=== PATIENT | female | born 1970 | race Caucasian/White ===

== ENCOUNTER 2022-09-26 08:01 | Inpatient (IN) | payer MEDICARE, OTHER ==
[2022-09-26] MEDS ORDERED: NITROGLYCERIN OINT 1 INCH/GM PACKET TOPICAL STA (08:32)
--- NOTE | 2022-09-26 08:35 | ED ---
General Adult HPI - General Chief complaint: Chest Pain Stated complaint: Chest pain Time Seen by Provider: 09/26/22 08:26 Source: patient, family, RN notes reviewed Mode of arrival: ambulatory Limitations: no limitations - History of Present Illness Initial comments: Patient is a pleasant 52-year-old female presenting to the emergency Department with concerns with chest discomfort. Onset of symptoms was a couple hours ago. Patient has pressure, more on the right side. Patient also has some associated dyspnea and was cold and sweaty earlier. Patient is a poor historian and family provides majority of history. Patient did also have an episode yesterday where she had difficulty moving her right arm and it locked up on her. Unclear how long this lasted for. Those symptoms have resolved at this time. - Related Data Home Medications Medication Instructions Recorded Confirmed Aspirin EC [Ecotrin Low Dose] 81 mg PO DAILY 09/26/22 09/26/22 Cholecalciferol [Vitamin D3 (25 25 mcg PO DAILY 09/26/22 09/26/22 Mcg = 1000 Iu)] Donepezil [Aricept] 10 mg PO BID 09/26/22 09/26/22 Meclizine [Antivert] 12.5 mg PO TID PRN 09/26/22 09/26/22 Memantine [Namenda] 10 mg PO BID 09/26/22 09/26/22 Multivitamins, Thera [Multivitamin 1 tab PO DAILY 09/26/22 09/26/22 (formulary)] Allergies Allergy/AdvReac Type Severity Reaction Status Date / Time No Known Allergies Allergy Verified 09/26/22 10:50 Review of Systems ROS Statement: Those systems with pertinent positive or pertinent negative responses have been documented in the HPI. ROS Other: All systems not noted in ROS Statement are negative. Constitutional: Denies: fever Eyes: Denies: eye pain ENT: Denies: ear pain Respiratory: Reports: as per HPI, cough, dyspnea Cardiovascular: Reports: as per HPI, chest pain Endocrine: Reports: fatigue Gastrointestinal: Denies: abdominal pain Genitourinary: Denies: dysuria Musculoskeletal: Denies: back pain Skin: Denies: rash Neurological: Reports: as per HPI. Denies: headache Past Medical History Past Medical History: Chest Pain / Angina, CVA/TIA, Memory Impairment History of Any Multi-Drug Resistant Organisms: None Reported Past Surgical History: Hysterectomy Past Psychological History: No Psychological Hx Reported Smoking Status: Current every day smoker Past Alcohol Use History: None Reported Past Drug Use History: None Reported General Exam Limitations: no limitations General appearance: alert, in no apparent distress Head exam: Present: atraumatic, normocephalic Eye exam: Present: normal appearance, PERRL, EOMI ENT exam: Present: normal oropharynx Neck exam: Present: normal inspection Respiratory exam: Present: normal lung sounds bilaterally Cardiovascular Exam: Present: regular rate, normal rhythm Expanded Peripheral pulses: 2+: Radial (R), Radial (L), Dorsalis Pedis (R), Dorsalis Pedis (L) GI/Abdominal exam: Present: soft. Absent: tenderness Extremities exam: Present: normal inspection, full ROM. Absent: pedal edema, calf tenderness Neurological exam: Present: alert, CN II-XII intact. Absent: motor sensory deficit Expanded Neurological exam: Present: protecting the airway Cranial nerves: EOM's Intact: Normal Sensory exam: Upper Extremity Light Touch: Normal, Lower Extremity Light Touch: Normal Motor strength exam: RUE: 5, LUE: 5, RLE: 5, LLE: 5 Psychiatric exam: Present: normal affect, normal mood Skin exam: Present: normal color Course Vital Signs 09/26/22 09/26/22 09/26/22 08:22 08:31 08:43 Temperature 98.5 F Pulse Rate 91 78 Pulse Rate [ 74 Office Assistant ] Respiratory 20 18 Rate Blood Pressure 86/53 100/52 O2 Sat by Pulse 99 98 Oximetry 09/26/22 09/26/22 09/26/22 09:01 10:19 10:56 Temperature Pulse Rate 78 85 81 Pulse Rate [ Office Assistant ] Respiratory 18 18 18 Rate Blood Pressure 104/84 97/62 106/59 O2 Sat by Pulse 98 98 98 Oximetry EKG Findings - EKG Results: EKG: interpreted by ERMD (T wave inversion leads V3 and V4.), sinus rhythm, normal axis, normal QRS Medical Decision Making - Medical Decision Making Was pt. sent in by a medical professional or institution (, PA, [facility] [employer], urgent care, hospital, or senior care...) When possible be specific @ -No Did you speak to anyone other than the patient for history (EMS, parent, family, police, friend...)? What history was obtained from this source @ -Family is present to help provide history as patient is a somewhat poor historian Did you review nursing and triage notes (agree or disagree)? Why? @ -I reviewed and agree with nursing and triage notes Were old charts reviewed (outside hosp., previous admission, EMS record, old EKG, old radiological studies, urgent care reports/EKG's, senior care records)? Report findings @ -And unable to find previous EKG Differential Diagnosis (chest pain, altered mental status, abdominal pain women, abdominal pain men, vaginal bleeding, weakness, fever, dyspnea, syncope, headache, dizziness, GI bleed, back pain, seizure, CVA, palpatations, mental health)? @ -Differential Chest Pain: Stable Angina, Unstable Angina, STEMI, NSTEMI Aortic Dissection, Pneumothorax, Musculoskeletal, Esophageal Spasm GERD, Cholecystitis, Pancreatitis, Zoster, this is not meant to be an all-inclusive list. EKG interpreted by me (3pts min.). @ -As above X-rays interpreted by me (1pt min.). @ -Chest x-ray shows no acute process CT interpreted by me (1pt min.). @ -Reports reviewed U/S interpreted by me (1pt. min.). @ -None done What testing was considered but not performed or refused? (CT, X-rays, U/S, labs)? Why? @ -None What meds were considered but not given or refused? Why? @ -None Did you discuss the management of the patient with other professionals (professionals i.e. , PA, [employer], lab, RT, psych nurse, social media designer, gas compressor operator, teacher, staff readiness officer, outpatient case manager)? Give summary @ -Case was discussed with Dr. hein, who will admit covering Dr. Bolden. Was smoking cessation discussed for >3mins.? @ -No Was critical care preformed (if so, how long)? @ -No Were there social determinants of health that impacted care today? How? (Homelessness, low income, unemployed, alcoholism, drug addiction, transportation, low edu. Level, literacy, decrease access to med. care, senior care, rehab)? @ -No Was there de-escalation of care discussed even if they declined (Discuss DNR or withdrawal of care, Hospice)? DNR status @ -No What co-morbidities impacted this encounter? (DM, HTN, Smoking, COPD, CAD, Cancer, CVA, ARF, Chemo, Hep., AIDS, mental health diagnosis, sleep apnea, morbid obesity)? @ -None Was patient admitted / discharged? Hospital course, mention meds given and route, prescriptions, significant lab abnormalities, going to OR and other pertinent info. @ -Patient reevaluated. Patient and family updated. Patient will be admitted with neurology evaluation Undiagnosed new problem with uncertain prognosis? @ -No Drug Therapy requiring intensive monitoring for toxicity (Heparin, Nitro, Insu nicko, Cardizem)? @ -No Were any procedures done? @ -No Diagnosis/symptom? @ -Pneumonia, TIA Acute, or Chronic, or Acute on Chronic? @ -Acute, acute Uncomplicated (without systemic symptoms) or Complicated (systemic symptoms)? @ -default Side effects of treatment? @ -No Exacerbation, Progression, or Severe Exacerbation? @ -No Poses a threat to life or bodily function? How? (Chest pain, [place], AR, pneumonia, PE, COPD, DKA, ARF, appy, cholecystitis, CVA, Diverticulitis, Homicidal, Suicidal, threat to staff... and all critical care pts) @ -No - Lab Data Result diagrams: 09/26/22 08:41 09/26/22 08:41 Lab Results 09/26/22 09/26/22 09/26/22 Range/Units 08:41 08:41 08:41 WBC 26.0 H (3.8-10.6) k/uL RBC 4.46 (3.80-5.40) m/uL Hgb 13.4 (11.4-16.0) gm/dL Hct 40.7 (34.0-46.0) % MCV 91.2 (80.0-100.0) fL MCH 30.0 (25.0-35.0) pg MCHC 32.9 (31.0-37.0) g/dL RDW 13.6 (11.5-15.5) % Plt Count 288 (150-450) k/uL MPV 8.6 Neutrophils % 88 % Lymphocytes % 7 % Monocytes % 5 % Eosinophils % 0 % Basophils % 0 % Neutrophils # 22.9 H (1.3-7.7) k/uL Lymphocytes # 1.7 (1.0-4.8) k/uL Monocytes # 1.2 H (0-1.0) k/uL Eosinophils # 0.0 (0-0.7) k/uL Basophils # 0.1 (0-0.2) k/uL PT 10.2 (9.0-12.0) sec INR 1.0 (<1.2) APTT 21.7 L (22.0-30.0) sec D-Dimer 0.87 H (<0.60) mg/L FEU Sodium 142 (137-145) mmol/L Potassium 3.7 (3.5-5.1) mmol/L Chloride 106 (98-107) mmol/L Carbon Dioxide 28 (22-30) mmol/L Anion Gap 8 mmol/L BUN 19 H (7-17) mg/dL Creatinine 0.59 (0.52-1.04) mg/dL Est GFR (CKD-EPI)AfAm >90 (>60 ml/min/1.73 sqM) Est GFR (CKD-EPI)NonAf >90 (>60 ml/min/1.73 sqM) Glucose 152 H (74-99) mg/dL Calcium 8.8 (8.4-10.2) mg/dL Magnesium 1.6 (1.6-2.3) mg/dL Total Bilirubin 0.8 (0.2-1.3) mg/dL AST 24 (14-36) U/L ALT 26 (4-34) U/L Alkaline Phosphatase 73 (38-126) U/L Troponin I (0.000-0.034) ng/mL Total Protein 6.7 (6.3-8.2) g/dL Albumin 4.1 (3.5-5.0) g/dL 09/26/22 Range/Units 08:41 WBC (3.8-10.6) k/uL RBC (3.80-5.40) m/uL Hgb (11.4-16.0) gm/dL Hct (34.0-46.0) % MCV (80.0-100.0) fL MCH (25.0-35.0) pg MCHC (31.0-37.0) g/dL RDW (11.5-15.5) % Plt Count (150-450) k/uL MPV Neutrophils % % Lymphocytes % % Monocytes % % Eosinophils % % Basophils % % Neutrophils # (1.3-7.7) k/uL Lymphocytes # (1.0-4.8) k/uL Monocytes # (0-1.0) k/uL Eosinophils # (0-0.7) k/uL Basophils # (0-0.2) k/uL PT (9.0-12.0) sec INR (<1.2) APTT (22.0-30.0) sec D-Dimer (<0.60) mg/L FEU Sodium (137-145) mmol/L Potassium (3.5-5.1) mmol/L Chloride (98-107) mmol/L Carbon Dioxide (22-30) mmol/L Anion Gap mmol/L BUN (7-17) mg/dL Creatinine (0.52-1.04) mg/dL Est GFR (CKD-EPI)AfAm (>60 ml/min/1.73 sqM) Est GFR (CKD-EPI)NonAf (>60 ml/min/1.73 sqM) Glucose (74-99) mg/dL Calcium (8.4-10.2) mg/dL Magnesium (1.6-2.3) mg/dL Total Bilirubin (0.2-1.3) mg/dL AST (14-36) U/L ALT (4-34) U/L Alkaline Phosphatase (38-126) U/L Troponin I <0.012 (0.000-0.034) ng/mL Total Protein (6.3-8.2) g/dL Albumin (3.5-5.0) g/dL Disposition Clinical Impression: Pneumonia, TIA (transient ischemic attack) Disposition: ADMITTED IP TO THIS HOSP Condition: Serious Is patient prescribed a controlled substance at d/c from ED?: No Referrals: Lencho Noriega MD [Primary Care Provider] - 1-2 days Time of Disposition: 11:05
[2022-09-26 08:51] LABS: Basophils # (A) 0.1 k/uL (0-0.2); Basophils % (A) 0 %; Eosinophils % (A) 0 %; HCT 40.7 % (34.0-46.0); HGB 13.4 gm/dL (11.4-16.0); Lymphocytes # (A) 1.7 k/uL (1.0-4.8); Lymphocytes % (A) 7 %; MCHC 32.9 g/dL (31.0-37.0); MCV 91.2 fL (80.0-100.0); Mean Platelet Volume 8.6; Monocytes # (A) 1.2 k/uL (0-1.0); Monocytes % (A) 5 %; Neutrophils # (A) 22.9 k/uL (1.3-7.7); Neutrophils % (A) 88 %; Platelet Count 288 k/uL (150-450); RBC 4.46 m/uL (3.80-5.40); RDW 13.6 % (11.5-15.5)
[2022-09-26 09:01] LABS: ALT 26 U/L (4-34); AST 24 U/L (14-36); African American GFR (CKD) >90 (>60 ml/min/1.73 sqM); Albumin 4.1 g/dL (3.5-5.0); Alkaline Phosphatase 73 U/L (38-126); Anion Gap 8 mmol/L; Blood Urea Nitrogen 19 mg/dL (7-17); Calcium 8.8 mg/dL (8.4-10.2); Carbon Dioxide 28 mmol/L (22-30); Chloride 106 mmol/L (98-107); Glucose 152 mg/dL (74-99); Magnesium 1.6 mg/dL (1.6-2.3); Non-African American GFR(CKD) >90 (>60 ml/min/1.73 sqM); Potassium 3.7 mmol/L (3.5-5.1); Sodium 142 mmol/L (137-145); Total Bilirubin 0.8 mg/dL (0.2-1.3); Total Protein 6.7 g/dL (6.3-8.2)
--- NOTE | 2022-09-26 09:03 | CT ---
EXAMINATION TYPE: CT brain wo con DATE OF EXAM: 09/26/2022 COMPARISON: None HISTORY: Right arm weakness CT DLP: 1070.7 mGycm Automated exposure control for dose reduction was used. FINDINGS: There is mild generalized degenerative change. There is no evidence of acute hemorrhage or mass effec t. No midline shift. Calvarium is grossly intact. Sinuses are clear. Orbits are symmetric. Craniocerv ical junction maintained. IMPRESSION: NO ACUTE HEMORRHAGE OR MASS EFFECT. CORRELATED WITH MRI IF CONCERN FOR ACUTE ISCHEMIA CLINICALLY W ARRANTED.
--- NOTE | 2022-09-26 09:04 | XR ---
EXAMINATION TYPE: XR chest 2V DATE OF EXAM: 09/26/2022 COMPARISON: 01/06/2010 TECHNIQUE: PA and lateral views submitted. HISTORY: Chest pain FINDINGS: The lungs are clear and there is no pneumothorax, pleural effusion, or focal pneumonia. Heart size normal and no overt failure. Osseous structures demonstrate hypertrophic and degenerative changes of the spine. Diffuse hyperinflation correlate for COPD. IMPRESSION: 1. No acute process. Correlate for COPD.
[2022-09-26 09:11] LABS: Partial Thromboplastin Time 21.7 sec (22.0-30.0); Prothrombin Time 10.2 sec (9.0-12.0)
--- NOTE | 2022-09-26 09:55 | CT ---
EXAMINATION TYPE: CT angio chest DATE OF EXAM: 09/26/2022 COMPARISON: Radiograph 09/26/2022 HISTORY: 52-year-old female Chest pains, dyspnea and cough TECHNIQUE: Contiguous axial scanning of the chest performed with IV Contrast, patient injected with 1 00, wasted 24 ml mL of Isovue 300. Coronal/sagittal MIP reconstructions performed. CT DLP: 195.8 mGycm Automated exposure control for dose reduction was used. FINDINGS: Multiple underlying thyroid nodules measuring up to at least 1.1 cm. Heart normal size without pericardial effusion. No flattening of the interventricular septum or reflu x of contrast into the hepatic veins. Aorta normal caliber with a conventional arch was a branching anatomy. Some prominent but nonenlarged mediastinal lymph nodes in the lower paratracheal and precarinal regio n measuring up to 7 mm. At the right hilum measuring 1.5 cm. Satisfactory opacification of the pulmonary artery system. There is excessive breathing motion at the lower lungs obscuring segmental and more distal branches of the lower lobe pulmonary arteries. No ev idence for pulmonary embolus within the upper or mid lungs. There is airspace disease medial right middle lobe and patchy infiltrate right base as well. Some end obronchial material is present within the posterior basilar segment of the right lower lobe. Some min imal scattered endobronchial debris is present in the basal left lower lobe as well. Background moderate upper lung predominant centrilobular emphysema. Biapical pleural-parenchymal scar ring. Visualized upper abdomen shows low density nodular thickening left adrenal gland and a nonspecific ca lcification measuring 7 mm on the right adrenal gland. Bones: Mild to moderate anterior degenerative disc disease mid thoracic spine with slight accentuated kyphosis. IMPRESSION: 1. EXCESSIVE BREATHING MOTION AT THE LOWER LUNGS LIMITING THE SEGMENTAL AND MORE DISTAL BRANCHES OF T HE LOWER LOBES. NO EVIDENCE FOR PULMONARY EMBOLUS IN THE UPPER OR MID LUNGS. 2. RIGHT MIDDLE LOBE PNEUMONIA AND ADDITIONAL BASILAR RIGHT LOWER LOBE INFILTRATES. SOME ENDOBRONCHIA L DEBRIS WITHIN BOTH LOWER LOBES. CORRELATE TO EXCLUDE THE POSSIBILITY OF ASPIRATION. 3. COPD WITH MODERATE EMPHYSEMA. SOME REACTIVE RIGHT HILAR LYMPHADENOPATHY SUSPECTED. FOLLOW-UP IN 3- 6 MONTHS TO ENSURE RESOLUTION. 4. MULTINODULAR THYROID GLAND. NONEMERGENT THYROID ULTRASOUND TO FURTHER EVALUATE.
[2022-09-26] MEDS ORDERED: AZITHROMYCIN 500 MG in SODIUM CHLORIDE 0.9% 250 ML IVPB STA (10:58)
[2022-09-26] MEDS ORDERED: PNEUMONIA PROTOCOL UTILIZED 1 EACH MISC PO PRN (10:58)
[2022-09-26] MEDS ORDERED: ASPIRIN 325 MG TAB PO STA (11:01)
[2022-09-26] MEDS: SODIUM CHLORIDE 0.9% 1,000 ML IV SCH (11:19)
--- NOTE | 2022-09-26 13:05 | US ---
EXAMINATION TYPE: US carotid duplex BILAT DATE OF EXAM: 09/26/2022 COMPARISON: NONE CLINICAL HISTORY: Stenosis. Weakness, poor historian TECHNIQUE: Carotid duplex ultrasound examination. Indirect Doppler criteria was utilized. FINDINGS: EXAM MEASUREMENTS: RIGHT: Peak Systolic Velocity (PSV) cm/sec ----- Right CCA: 65.3 ----- Right ICA: 92.2 ----- Right ECA: 76.8 ICA/CCA ratio: 1.4 RIGHT: End Diastole cm/sec ----- Right CCA: 26.1 ----- Right ICA: 42.8 ----- Right ECA: 21.9 LEFT: Peak Systolic Velocity (PSV) cm/sec ----- Left CCA: 82.3 ----- Left ICA: 93.1 ----- Left ECA: 82.3 ICA/CCA ratio: 1.1 LEFT: End Diastole cm/sec ----- Left CCA: 25.2 ----- Left ICA: 41.3 ----- Left ECA: 17.5 VERTEBRALS (direction of flow): Right Vertebral: Antegrade Left Vertebral: Antegrade Rhythm: Normal [employer]ANT CUSTODIAN NOTES: No significant stenosis seen IMPRESSION: No significant hemodynamic stenosis is visualized. Criteria for Assigning % of Stenosis / Diameter reduction (Estimation based on the indirect measurements of the internal carotid artery velocities (ICA PSV). 1. Normal (no stenosis)=ICA PSV < 125 cm/s: ratio < 2.0: ICA EDV<40 cm/s. 2. Less than 50% stenosis=ICA PSV < 125 cm/s: ratio < 2.0: ICA EDV<40 cm/s. 3. 50 to 69% stenosis=ICA PSV of 125 to 230 cm/s: ration 2.0 ? 4.0: ICA EDV 40-100 cm/s. 4. Greater than 70% stenosis to near occlusion= ICA PSV > 230 cm/s: ratio > 4.0: ICA EDV > 100 cm/s. 5. Near occlusion= ICA PSV velocities may be low or undetectable: variable ratio and ICA EDV. 6. Total occlusion=unable to detect flow.
[2022-09-26] MEDS ORDERED: MECLIZINE 12.5 MG TAB PO PRN (16:28)
[2022-09-26] MEDS: MULTIVITAMINS, THERA 1 EACH TAB PO SCH (17:22)
[2022-09-26] MEDS: ATORVASTATIN 20 MG TAB PO SCH (17:22)
[2022-09-26] MEDS: CHOLECALCIFEROL 25 MCG (1000 IU) TABLET PO SCH (17:24)
[2022-09-26] MEDS: ACETAMINOPHEN TAB 325 MG TAB PO PRN (17:51)
--- NOTE | 2022-09-26 19:27 | P.CNNES ---
History of Present Illness Consult date: 09/26/22 Requesting physician: Diomedes Pulliam Reason for Consult: r arm weak, resolved, tia History of Present Illness: Patient is a 52-year-old right-handed female with history of strokes in the past, vascular dementia, COPD, tobacco use, came to the hospital today at 8:01 AM for possible TIA. Patient lives with her daughter, who mentions that she had history of a stroke which affected her right side about 24 years ago. A few years later, she had another one. It affected part of her vision on the right side, and her memory functions. Patient was recently admitted to [facility] for possible TIA about 3 months ago, in which she was not feeling well, like will pass out.-Patient's daughter saw her, she was laying in the bed with the lower body hanging down on the floor, and she couldn't move, couldn't talk. The episode lasted for a few hours. She stayed in [facility] overnight, underwent MRI, CT head and was released. She was diagnosed with "mini stroke". Patient did not have any jerking or seizure-like activity with that event. Patient's daughter states that she had a similar event this morning. She was dizzy, short of breath, couldn't stand up, couldn't move her right arm as if it was "locked up". She couldn't get up, couldn't respond well, or go to the bathroom. She was shaking, sweating and she couldn't stand because she was wobbly. Her daughter believes that she was like "paralyzed". Patient's daughter states that despite diagnosis of dementia, she is independent otherwise, can do all ADLs by herself. Vital signs arrival blood pressure 86/53, which improved to 100/52. Pulse rate 91 temperature 98.5. Blood test shows WBC 26.0, hemoglobin 13.4 and platelets are 288. PT/PTT normal. Chem-[address] is [address] Troponin negative. CT head revealed no acute hemorrhage or mass effect. Sinuses are clear. Chest x-ray showed no acute process. Correlate for COPD. EKG shows sinus rhythm. CT of the chest revealed negative for pulmonary embolism. Right middle lobe pneumonia and additional basilar right lower lobe infiltrates. Some endobronchial debris is within both lower lobes. COPD with moderate emphysema. Some reactive right hilar lymphadenopathy suspected. Multinodular thyroid gland. IM to address all these findings. No previous history of hypertension or diabetes or hyperlipidemia. Home medications include multivitamins, meclizine, Lipitor 20 mg, vitamin D, aspirin 81 mg, Namenda 10 mg twice a day and donepezil 10 mg twice a day. Patient has been diagnosed with dementia in 2019. Her symptoms started way before that. Patient can shower, get dressed by herself and she remembers her close family members. She cannot read or write, has short-term memory issues. She cannot make decisions. She would not remember the month or the year and does not remember conversations. Everything has to be in routine for her to remember. Anything out of routine she forgets. Patient follows up with Dr. Wagner, who has started patient on Aricept and Namenda. Patient daughter states that she had undergone lumbar puncture, which "confirmed dementia". Patient has smoked 1 pack per day for over 30 years, cutback to smoking one pack per week since February 2022. Patient lives with her daughter. Patient's daughter states that she had history of a stroke 22 years ago which affected her right side. After that she was diagnosed with hemiplegic migraines. She has also few "mini strokes" subsequently. Patient does have chronic daily heada ches. At present patient is not back to baseline. She is wobbly, dizzy, just is hurting in her conversation is not as well as before. Review of Systems Constitutional: Denies chills, Denies fever Eyes: bilateral blurred vision, denies diplopia, denies pain Ears: deny: ear discharge, earache Ears, nose, mouth and throat: Reports headache, Denies sore throat Cardiovascular: Reports chest pain, Reports shortness of breath Respiratory: Reports cough, Reports cough with sputum, Reports dyspnea Gastrointestinal: Reports diarrhea, Denies abdominal pain, Denies nausea, Denies vomiting Genitourinary: Denies dysuria, Denies hematuria, Denies urge incontinence Musculoskeletal: Reports muscle weakness, Denies myalgias Integumentary: Denies pruritus, Denies rash Neurological: Reports as per HPI Psychiatric: Reports confusion, Reports difficulty concentrating, Reports disorientation, Reports memory loss Endocrine: Denies fatigue, Denies weight change Hematologic/Lymphatic: Reports easy bleeding, Reports easy bruising Past Medical History Past Medical History: Chest Pain / Angina, CVA/TIA, Memory Impairment Additional Past Medical History / Comment(s): uterice CA with hysterectomy, tubes placed in ears History of Any Multi-Drug Resistant Organisms: None Reported Past Surgical History: Hysterectomy Past Anesthesia/Blood Transfusion Reactions: No Reported Reaction Past Psychological History: No Psychological Hx Reported Smoking Status: Current every day smoker Past Alcohol Use History: None Reported Past Drug Use History: None Reported - Past Family History Mother Family Medical History: Cancer Additional Family Medical History / Comment(s): small cell lung CA, brain tumor Father Family Medical History: Cancer Additional Family Medical History / Comment(s): large cell CA Medications and Allergies Home Medications Medication Instructions Recorded Confirmed Type Aspirin EC [Ecotrin Low Dose] 81 mg PO HS 09/26/22 09/26/22 History Atorvastatin [Lipitor] 20 mg PO DAILY 09/26/22 09/26/22 History Cholecalciferol [Vitamin D3 (25 25 mcg PO DAILY 09/26/22 09/26/22 History Mcg = 1000 Iu)] Donepezil [Aricept] 10 mg PO BID 09/26/22 09/26/22 History Meclizine [Antivert] 12.5 mg PO TID PRN 09/26/22 09/26/22 History Memantine [Namenda] 10 mg PO BID 09/26/22 09/26/22 History Multivitamins, Thera [Multivitamin 1 tab PO DAILY 09/26/22 09/26/22 History (formulary)] Allergies Allergy/AdvReac Type Severity Reaction Status Date / Time No Known Allergies Allergy Verified 09/26/22 11:16 Physical Examination - Vital Signs Vital Signs: Vital Signs Temp Pulse Pulse Resp BP BP Pulse Ox 09/26/22 13:10 98.3 F 78 18 96/61 97 09/26/22 12:17 81 18 105/59 98 09/26/22 10:56 81 18 106/59 98 09/26/22 10:19 85 18 97/62 98 09/26/22 09:01 78 18 104/84 98 09/26/22 08:43 78 18 100/52 98 09/26/22 08:31 74 09/26/22 08:22 98.5 F 91 20 86/53 99 Intake and Output 09/25/22 09/26/22 09/26/22 22:59 06:59 14:59 Other: Weight 49.895 kg Patient is a middle aged female, who appears older than her stated age. Patient is alert awake. Patient knows that she lives in [facility] and that she is in the hospital, but does not know the name of the hospital. She knows name of the current president Mr. Slater. She could not tell current month or the year. She is able to name objects like [employer], but could not name earlobe. She had difficulty with repetition, required multiple prompts. Speech and language functions are normal. No aphasia or dysarthria. Attention, concentration and fund of knowledge is limited. Patient has positive visuospatial apraxia, minimally positive palmomental reflex bilaterally. On cranial nerve examination, pupils are equal, round and reacting to light, visual de león revealed neglect on the right side with double simultaneous stimulation. Patient has severely decreased attention span. Extraocular muscles are intact with no nystagmus. Face is symmetric, tongue protrudes to the midline. Palatal elevation and sensation normal, hearing and shoulder shrug normal, facial sensation normal. On muscle strength testing, there is no pronator drift and the strength is normal in arms and legs distally and proximally. Deep tendon reflexes are symmetric 1+ to 2+ and plantars are withdrawal bilaterally. Sensory to touch is equal with no neglect on double simultaneous stimulation. Cerebellar function showed no ataxia for [id number] testing. No dysdiadochokinesia. No ataxia for [id number] testing on either side. Tone and bulk of muscles normal. Gait deferred.. On general examination, there is no carotid bruit or murmur, S1-S2 audible. Chest is clear on consultation. Abdomen is soft nontender. No organomegaly, bowel sounds present. Peripheral pulses are present. No edema. Results - Laboratory Findings CBC and BMP: 09/27/22 08:59 09/27/22 08:59 Abnormal Lab Findings: Abnormal Labs 09/26/22 09/26/22 09/26/22 08:41 08:41 08:41 WBC 26.0 H Neutrophils # 22.9 H Monocytes # 1.2 H APTT 21.7 L D-Dimer 0.87 H BUN 19 H Glucose 152 H Assessment and Plan Assessment: * Episode of altered mental status, right arm stiffness, rule out TIA/CVA, rule out focal seizure. Altered mental status could be related to acute pneumonia, but focal stiffness of the right arm is of unclear cause. * Dementia, probably vascular dementia, ?superimposed Alzheimer's. * Possible COPD exacerbation versus pneumonia. Patient on ceftriaxone. * History of stroke/TIA in the past. * History of hemiplegic migraines * Tobacco use Plan: * MRI of the brain without contrast, evaluate for acute CVA * 2-D echo to rule out embolic source. * Carotid Doppler, revealed no significant stenosis. Antegrade flow in both vertebral arteries. * Fasting a.m. lipid panel * Hemoglobin A1c * B12, folate, TSH, MMA, B6, B1, RPR. * Optimize control of blood pressure. * Close neuro checks * Telemetry monitoring rule out any arrhythmia * Patient currently on aspirin 81 mg daily. Patient had multiple strokes/TIAs in the past. Patient probably has failed aspirin regimen. We will consider placing her on dual antiplatelet medication (aspirin plus Plavix) for 21 days and then stop aspirin and continue Plavix. * EEG rule out epileptiform activity. * Obtain records from [facility]. * For possible COPD exacerbation, patient on ceftriaxone and azithromycin. IM following. * Recommend complete tobacco cessation. * DVT prophylaxis: Heparin 5000 units subcu every 8 hours * Neurology will continue ot follow. Thank you for the consult. Time with Patient: Greater than 30
[2022-09-26] MEDS: ASPIRIN 81 MG PO SCH (21:46)
[2022-09-26] MEDS: MEMANTINE 10 MG TAB PO SCH (21:46)
[2022-09-26] MEDS: DONEPEZIL 10 MG TAB PO SCH (21:46)
[2022-09-27] MEDS: SODIUM CHLORIDE 0.9% 1,000 ML IV SCH ×2 (00:40→21:33)
--- NOTE | 2022-09-27 00:56 | HP ---
HISTORY AND PHYSICAL CHIEF COMPLAINT: Chest pain. HISTORY OF PRESENT ILLNESS: This is a 52-year-old woman with a past medical history of multiple medical problems including CVA, TIA, history of memory impairment, was admitted to [facility] with complaints of chest discomfort, which started about a couple of years ago. The patient had a pressure type of pain in the anterior part, otherwise some associated shortness of breath and cold and sweaty feeling also. The patient also had some weakness of the right arm yesterday and the patient is admitted for further evaluation and treatment. There is no history of any fever, rigors, or chills at this time. CT angio of chest showed evidence of right middle lobe pneumonia. White count is elevated to 26.4, which was reviewed personally by me and CT of the brain showed no acute problems and there is no history of any rigors, or chills at this time. PAST MEDICAL HISTORY: Reviewed include CVA, TIA, history of memory impairment, history of chest pain, angina. Rest of the history and rest of the chart is also reviewed. HOME MEDICATIONS: Include aspirin. Dose and rest of the medications reviewed. ALLERGIES: None. FAMILY HISTORY: History of small cell lung cancer with brain tumor. SOCIAL HISTORY: History of smoking continued, ongoing. REVIEW OF SYSTEMS: A 14-point review is negative except as mentioned earlier. PHYSICAL EXAMINATION: VITAL SIGNS: Pulse 78, blood pressure 96/61, respirations 18. HEENT: Conjunctivae normal. NECK: No jugular venous distention. CARDIOVASCULAR: S1, S2 muffled. RESPIRATIONS: Breath sounds decreased at the bases. A few scattered rhonchi and crackles. ABDOMEN: Soft, nontender. LEGS: No edema. NERVOUS SYSTEM: No focal deficits. SKIN: No ulcer, rash, or bleeding. JOINTS: No active deforming arthropathy. LABORATORY DATA: WBC 26. ASSESSMENT: 1. Right middle lobe pneumonia, possibly rule out aspiration. 2. Right arm weakness, possible recent transient ischemic attack, rule out acute stroke. 3. History of cerebrovascular accident, transient ischemic attack. 4. History of memory impairment. 5. History of uterine cancer. 6. History of continued ongoing nicotine dependence. 7. Elevated D-dimer without any evidence of pulmonary embolism. 8. Elevated WBC. RECOMMENDATIONS AND DISCUSSION: This is a 52-year-old woman, who presented with multiple complex medical issues. At this time, I recommend to continue current medications and symptomatic treatment. Otherwise, I would recommend empiric antibiotics, pulmonary consultations, and full neurovascular workup. The patient has multiple complex medical issues as listed above, which definitely affects the prognosis and we will continue to monitor. See orders for further details. DVT prophylaxis. MMODL / IJN: [id number] /
--- NOTE | 2022-09-27 08:49 | XR ---
EXAMINATION TYPE: XR chest 2V DATE OF EXAM: 09/27/2022 COMPARISON: 09/26/2022 TECHNIQUE: PA and lateral views submitted. HISTORY: Cough FINDINGS: Subsegmental consolidation medial margin right lower lobe. Hyperinflation. Heart size normal. No over t failure. Nodular density overlying the left apex may be related to the chest lead. Could be followe d on subsequent images. 2 mm report upper lobe pulmonary nodule. Underlying COPD. IMPRESSION: 1. There is an area of increased density along the right heart border near the lung base could repres ent early pneumonia or atelectasis. 2. COPD
[2022-09-27] MEDS ORDERED: ASPIRIN 325 MG TAB PO SCH (09:00)
[2022-09-27] MEDS: AZITHROMYCIN 500 MG TAB PO SCH (09:07)
[2022-09-27] MEDS: ATORVASTATIN 20 MG TAB PO SCH (09:07)
[2022-09-27] MEDS: CHOLECALCIFEROL 25 MCG (1000 IU) TABLET PO SCH (09:09)
[2022-09-27] MEDS: DONEPEZIL 10 MG TAB PO SCH ×2 (09:09→21:32)
[2022-09-27] MEDS: MULTIVITAMINS, THERA 1 EACH TAB PO SCH (09:10)
[2022-09-27] MEDS: MEMANTINE 10 MG TAB PO SCH ×2 (09:10→21:32)
[2022-09-27 09:21] LABS: Basophils % (A) 0 %; Eosinophils # (A) 0.2 k/uL (0-0.7); Eosinophils % (A) 2 %; HCT 35.8 % (34.0-46.0); HGB 12.1 gm/dL (11.4-16.0); Lymphocytes # (A) 1.7 k/uL (1.0-4.8); Lymphocytes % (A) 13 %; MCH 30.8 pg (25.0-35.0); MCHC 33.7 g/dL (31.0-37.0); MCV 91.4 fL (80.0-100.0); Mean Platelet Volume 8.8; Monocytes # (A) 0.6 k/uL (0-1.0); Monocytes % (A) 4 %; Neutrophils # (A) 10.2 k/uL (1.3-7.7); Neutrophils % (A) 79 %; Platelet Count 244 k/uL (150-450); RBC 3.91 m/uL (3.80-5.40); WBC 12.8 k/uL (3.8-10.6)
[2022-09-27 09:36] LABS: African American GFR (CKD) >90 (>60 ml/min/1.73 sqM); Anion Gap 4 mmol/L; Blood Urea Nitrogen 16 mg/dL (7-17); Calcium 8.5 mg/dL (8.4-10.2); Carbon Dioxide 27 mmol/L (22-30); Chloride 110 mmol/L (98-107); Glucose 108 mg/dL (74-99); Non-African American GFR(CKD) >90 (>60 ml/min/1.73 sqM); Sodium 141 mmol/L (137-145)
--- NOTE | 2022-09-27 14:35 | EEG ---
ELECTROENCEPHALOGRAM REPORT PREAMBLE: This is a 52-year-old female with cognitive impairment, has episodes of TIA versus seizure. This study is performed to evaluate for any epileptiform activity. EEG FINDINGS: This is a 21-channel digital EEG recorded with video component, utilizing 10/20 international system with referential and bipolar montages. Background consists of moderately well-developed and regulated, predominantly low amplitude 4-6 hertz theta activity seen in bihemispheric region. Background seems to be minimally reactive to eye opening and closing. Intermittent higher amplitude 7 hertz theta activity was seen in bihemispheric region. Occasional frontal intermittent rhythmic delta activity was seen. Photic driving response was seen with some flash frequencies. Hyperventilation was not performed. Different stages of sleep were not clearly seen. No focal or generalized epileptiform activity was seen. IMPRESSION: This is an abnormal EEG due to background slowing of mild to moderate degree. This is suggestive of generalized cerebral dysfunction as can be seen with encephalopathy related to metabolic, vascular, or degenerative etiology. Clinical correlation is recommended. Occasional frontal intermittent rhythmic delta activity was seen, which is nonspecific finding, may suggest underlying cortical dysfunction, or may be related to encephalopathy. No epileptiform activity was seen. MMODL / IJN: [id number] /
--- NOTE | 2022-09-27 14:39 | MR ---
EXAMINATION TYPE: MR brain wo con DATE OF EXAM: 09/27/2022 12:13 PM COMPARISON: 09/26/2022. CLINICAL INDICATION:Female, 52 years old with history of Stroke/TIA; Right arm weakness. TECHNIQUE: Multi planar, multi sequence imaging was performed through the brain including: T1, T2, In version recovery, Diffusion weighted imaging, and gradient echo imaging. No gadolinium was given. FINDINGS: The nelson-white junctions, ventricular system, and cisterns appear unremarkable. Scattered foci of hi gh T2 signal intensity are seen within the periventricular white matter. Midline structures show no a bnormality. Diffusion-weighted imaging shows no evidence of restricted diffusion. The susceptibility weighted images do not reveal any evidence for micro-hemorrhage. The bone marrow signal is within normal limits. Paranasal sinuses and mastoid air cells: No significant paranasal sinus disease. Visualized orbits: Orbital contents are intact. IMPRESSION: 1. No evidence of intracranial mass or acute/subacute infarct. 2. Nonspecific white matter changes, likely secondary to small vessel ischemic disease.
--- NOTE | 2022-09-27 15:11 | P.CNPUL ---
History of Present Illness Consult date: 09/27/22 Requesting physician: Justin Crews Reason for consult: dyspnea, cough, hypoxemia, pneumonia, abnormal CXR/CT Chief complaint: Shortness of breath, pneumonia. History of present illness: Pulmonary consult dated 09/27/2022. 52-year-old female seen in the emergency department on September 26, complaining of chest pain. She apparently had not been feeling well for just a few hours or maybe a day or so before admission. She had pressure in the chest primarily on the right side. She also admitted to being short of breath, and was cold, and sweaty. She apparently did not provide most of the history, and it was mostly provided by family members. We see her today in room 385. She sitting in bed, resting comfortably, with her daughter at the bedside. The patient's on room air. The patient's not receiving any IV fluids. The patient was placed on Rocephin and azithromycin for possible pneumonia. The patient did smoke for 40 years. She was smoking time of her admission. She apparently has no significant past medical history other than dementia. White count 12.8, with a normal hemoglobin, hematocrit, and platelet count. Sodium 141, potassium 4, chlorides 110, CO2 27, within normal BUN and creatinine. TSH was normal. Brain MRI was essentially unremarkable, other than for some nonspecific white matter changes. Chest x-ray shows a possible infiltrate adjacent to the right heart border. CT angiogram was negative for pulmonary embolism, but did show a right middle lobe infiltrate. There are also changes consistent with COPD. Review of Systems REVIEW OF SYSTEMS: CONSTITUTIONAL: [Negative.] NEUROLOGIC: Bizarre neurologic complaints. HEENT: [ Negative.] CARDIAC: Chest pain/pressure. PULMONARY: Shortness breath, cough, chest congestion, and some phlegm production. GI: [Negative.] : [Negative.] RHEUMATOLOGIC: [ Negative.] IMMUNOLOGIC: [ Negative.] ENDOCRINE: [Negative. ] DERMATOLOGIC: [Negative.] Past Medical History Past Medical History: Chest Pain / Angina, CVA/TIA, Memory Impairment Additional Past Medical History / Comment(s): uterice CA with hysterectomy, tubes placed in ears History of Any Multi-Drug Resistant Organisms: None Reported Past Surgical History: Hysterectomy Past Anesthesia/Blood Transfusion Reactions: No Reported Reaction Past Psychological History: No Psychological Hx Reported Smoking Status: Current every day smoker Past Alcohol Use History: None Reported Past Drug Use History: None Reported - Past Family History Mother Family Medical History: Cancer Additional Family Medical History / Comment(s): small cell lung CA, brain tumor Father Family Medical History: Cancer Additional Family Medical History / Comment(s): large cell CA Medications and Allergies Home Medications Medication Instructions Recorded Confirmed Type Aspirin EC [Ecotrin Low Dose] 81 mg PO HS 09/26/22 09/26/22 History Atorvastatin [Lipitor] 20 mg PO DAILY 09/26/22 09/26/22 History Cholecalciferol [Vitamin D3 (25 25 mcg PO DAILY 09/26/22 09/26/22 History Mcg = 1000 Iu)] Donepezil [Aricept] 10 mg PO BID 09/26/22 09/26/22 History Meclizine [Antivert] 12.5 mg PO TID PRN 09/26/22 09/26/22 History Memantine [Namenda] 10 mg PO BID 09/26/22 09/26/22 History Multivitamins, Thera [Multivitamin 1 tab PO DAILY 09/26/22 09/26/22 History (formulary)] Allergies Allergy/AdvReac Type Severity Reaction Status Date / Time No Known Allergies Allergy Verified 09/26/22 11:16 Physical Exam Osteopathic Statement: *. No significant issues noted on an osteopathic structural exam other than those noted in the History and Physical/Consult. Vitals: Vital Signs Temp Pulse Resp BP Pulse Ox 09/27/22 11:29 98.0 F 65 15 109/73 98 09/27/22 10:01 75 13 09/27/22 08:39 98.2 F 75 13 103/68 95 09/27/22 08:00 71 15 09/27/22 05:00 98.2 F 69 14 144/71 97 09/27/22 01:00 97.6 F 66 15 110/70 96 09/26/22 20:40 97.9 F 70 14 93/59 96 09/26/22 15:34 97.7 F 79 16 98/65 98 Intake and Output 09/26/22 09/27/22 09/27/22 22:59 06:59 14:59 Intake Total 840 118 Balance 840 118 Intake: IV 360 Invasive Line 1 360 Intake, IV Titration 480 Amount Sodium Chloride 0.9% 1, 480 000 ml @ 60 mls/hr IV . [id number] [facility] Rx#:[id number] Oral 118 Other: Voiding Method Toilet Toilet Toilet # Voids 3 No acute distress, oriented 3. Currently on room air. HEENT examination is grossly unremarkable. Neck supple. Full range of motion. No adenopathy thyromegaly or neck vein distention. Cardiovascular examination reveals regular rhythm rate. S1-S2 normal. No S3 or S4. No discernible murmur noted. Heart rate 65 bpm. Lungs reveal scattered bilateral rhonchi. No wheezes. No crackles. Room air saturation 98%. Abdomen soft bowel sounds are heard. No masses or tenderness. Extremities are intact. No cyanosis clubbing or edema. Skin is without rash or lesion. Neurologic examination is brief but nonfocal. Results - Laboratory Findings CBC and BMP: 09/27/22 08:59 09/27/22 08:59 PT/INR, D-dimer PT 10.2 sec (9.0-12.0) 09/26/22 08:41 INR 1.0 (<1.2) 09/26/22 08:41 D-Dimer 0.87 mg/L FEU (<0.60) H 09/26/22 08:41 Abnormal lab findings: Abnormal Labs 09/26/22 09/26/22 09/26/22 08:41 08:41 08:41 WBC 26.0 H Neutrophils # 22.9 H Monocytes # 1.2 H APTT 21.7 L D-Dimer 0.87 H Chloride BUN 19 H Glucose 152 H Folate 09/26/22 09/27/22 09/27/22 20:08 08:59 08:59 WBC 12.8 H Neutrophils # 10.2 H Monocytes # APTT D-Dimer Chloride 110 H BUN Glucose 108 H Folate 38.00 H - Diagnostic Findings Chest x-ray: image reviewed CT scan - chest: image reviewed Assessment and Plan Assessment: Acute shortness of breath, secondary to COPD exacerbation, complicated by right- sided pneumonia. Ongoing tobacco use with nicotine addiction. History of dementia. History of CVA. History of angina pectoris. Plan: Plan dated 09/27/2022. The patient is currently on azithromycin and Rocephin. The patient is currently being followed by neurology as well. Continue to follow and make recommendations along the way. Prognosis is guarded. We counseled her about the importance of smoking cessation. Time with Patient: Greater than 30
[2022-09-27] MEDS: ALBUTEROL NEBULIZED 2.5 MG/3 ML INHALATION SCH ×2 (16:12→21:41)
[2022-09-27 17:39] LABS: VLDL Calculation 16.22 mg/dL (5.00-40.00)
[2022-09-27] MEDS: levETIRAcetam 500 MG TAB PO SCH (21:32)
[2022-09-27] MEDS: ASPIRIN 81 MG PO SCH (21:32)
[2022-09-27] MEDS: SYMBICORT 160-4.5 MCG INHALER INHALATION SCH (21:41)
--- NOTE | 2022-09-28 05:12 | P.PN ---
Subjective Progress Note Date: 09/27/22 This is a 52-year-old female who was recently admitted with chest discomfort associated with shortness of breath and not feeling well over the last few days. Patient also had some weakness of the right arm and undergoing neurological workup. Pulmonary consulted with concerns of possible aspiration pneumonia is there is a chest x-ray did show some right middle lobe infiltrate as well as possible component of COPD exacerbation. Patient discontinued smoking and tobacco cessation was counseled. Patient scheduled for MRI of the brain which is currently pending. Will await reports and discuss further with neurology. Patient is currently afebrile and reports some shortness of breath. Patient den ies chest pain or palpitations currently. No reports of nausea or vomiting and patient tolerating diet Review of systems: Constitutional: No reports of fatigue, fever, or chills Cardiovascular: No reports of chest pain or palpitations Respiratory: reports of shortness of breath and cough GI: no reports of nausea, no reports of vomiting, or diarrhea : No reports of dysuria or retention Neurovascular: reports of generalized weakness, right side All medications have been reviewed Active Medications Acetaminophen (Acetaminophen Tab 325 Mg Tab) 650 mg PO Q6HR PRN PRN Reason: Fever and/ or Pain Last Admin: 09/26/22 17:51 Dose: 650 mg Albuterol Sulfate (Albuterol Nebulized 2.5 Mg/3 Ml) 2.5 mg INHALATION RT-QID [facility] Last Admin: 09/27/22 21:41 Dose: 2.5 mg Aspirin (Aspirin 81 Mg) 81 mg PO HS [facility] Last Admin: 09/27/22 21:32 Dose: 81 mg Atorvastatin Calcium (Atorvastatin 20 Mg Tab) 20 mg PO DAILY [facility] Last Admin: 09/27/22 09:07 Dose: 20 mg Azithromycin (Azithromycin 500 Mg Tab) 500 mg PO DAILY [facility]; Protocol Stop: 09/28/22 09:01 Last Admin: 09/27/22 09:07 Dose: 500 mg Budesonide/Formoterol Fumarate (Symbicort 160-4.5 Mcg Inhaler) 2 puff INHALATION RT-BID [facility] Last Admin: 09/27/22 21:41 Dose: 2 puff Cholecalciferol (Cholecalciferol 25 Mcg (1000 Iu) Tablet) 25 mcg PO DAILY [facility] Last Admin: 09/27/22 09:09 Dose: 25 mcg Donepezil HCl (Donepezil 10 Mg Tab) 10 mg PO BID [facility] Last Admin: 09/27/22 21:32 Dose: 10 mg Ceftriaxone Sodium 2 gm/ (Sodium Chloride) 50 mls @ 100 mls/hr IVPB Q24HR [facility]; Protocol Stop: 09/30/22 09:29 Last Admin: 09/27/22 09:08 Dose: 100 mls/hr Sodium Chloride (Saline 0.9%) 1,000 mls @ 60 mls/hr IV .[id number] [facility] Last Admin: 09/27/22 21:33 Dose: 60 mls/hr Levetiracetam (Levetiracetam 500 Mg Tab) 500 mg PO Q12HR [facility] Last Admin: 09/27/22 21:32 Dose: 500 mg Meclizine HCl (Meclizine 12.5 Mg Tab) 12.5 mg PO TID PRN PRN Reason: Vertigo Memantine (Memantine 10 Mg Tab) 10 mg PO BID [facility] Last Admin: 09/27/22 21:32 Dose: 10 mg Miscellaneous Information (Pneumonia Protocol Utilized 1 Each Misc) 1 each PO ONCE PRN PRN Reason: Per Protocol Multivitamins (Multivitamins, Thera 1 Each Tab) 1 each PO DAILY [facility] Last Admin: 09/27/22 09:10 Dose: 1 each PHYSICAL EXAMINATION: GENERAL: The patient is alert and oriented x2, thin built, elderly appearing HEENT: Pupils are round and equally reacting to light. EOMI. no scleral icterus. No conjunctival pallor. Normocephalic, atraumatic. No pharyngeal erythema. No thyromegaly. CARDIOVASCULAR: S1 and S2 muffled PULMONARY: diminished breath sounds bilaterally with some expiratory wheezing and scattered rhonchi noted. ABDOMEN: soft. Nontender on exam. non-distended, normoactive bowel sounds. No palpable organomegaly. MUSCULOSKELETAL: No joint swelling or deformity. EXTREMITIES: No cyanosis, clubbing, or pedal edema. NEUROLOGICAL: Gross neurological examination did not reveal any focal deficits. Diffuse weakness SKIN: No rashes. Assessment: Right middle lobe pneumonia, possibly, rule out aspiration Right arm weakness, possible recent TIA, rule out acute CVA COPD, Acute exacerbation History of CVA/TIA History of memory impairment with dementia History of uterine cancer History of continued ongoing nicotine dependence Elevated d-dimer with no evidence of PE on CT Leukocytosis GI prophylaxis DVT prophylaxis Full code Plan: Recommend to continue with current medications and management with neurology following as well as pulmonary placed on consult for possible pneumonia of the right middle lobe. Patient is continued on ceftriaxone and will continue patient also has history of COPD with acute exacerbation and will be continued on breathing treatments Patient scheduled to undergo MRI along with EEG and undergoing neurological workup Recommend PT/OT therapy Will follow-up with repeat labs Due to multiple complex medical issues, prognosis is guarded The impression and plan of care has been dictated by Cassie Verduzco, nurse practitioner as directed. Dr. Enrrique MD I have performed a history and examination and MDM of this patient, discussed the same with the dictator, and agree with the dictator's assessment and plan as written ,documented as a scribe. Based on total visit time, I have performed more than 50% of the visit. Any additional findings or plans will be noted. Objective - Vital Signs Vital signs: Vital Signs Temp 98.2 F 09/27/22 08:39 Pulse 75 09/27/22 08:39 Resp 13 09/27/22 08:39 BP 103/68 09/27/22 08:39 Pulse Ox 95 09/27/22 08:39 FiO2 Intake & Output 09/26/22 09/27/22 09/27/22 18:59 06:59 18:59 Intake Total 840 118 Balance 840 118 Weight 49.895 kg Intake: IV 360 Invasive Line 1 360 Intake, IV Titration 480 Amount Sodium Chloride 0.9% 1, 480 000 ml @ 60 mls/hr IV . [id number] [facility] Rx#:[id number] Oral 118 Other: Voiding Method Toilet - Labs CBC & Chem 7: 09/27/22 08:59 09/27/22 08:59 Labs: Abnormal Lab Results - Last 24 Hours (Table) 09/26/22 09/27/22 09/27/22 Range/Units 20:08 08:59 08:59 WBC 12.8 H (3.8-10.6) k/uL Neutrophils # 10.2 H (1.3-7.7) k/uL Chloride 110 H (98-107) mmol/L Glucose 108 H (74-99) mg/dL Folate 38.00 H (4.40-31.00) ng/mL
--- NOTE | 2022-09-28 08:45 | CA ---
Transthoracic Echo Report Name: Yari Ortiz Age: 52 Gender: F : 1970 Exam Date: 09/27/2022 13:34 Exam Location: [facility] Ht (in): 61 Wt (lb): 110 Ordering Physician: Diomedes Pulliam DO Attending/Referring Phys: [employer] Dior Hilton RDCS Procedure CPT: Indications: Thrombus Cardiac Hx: Technical Quality: Fair Contrast 1: Total Dose (mL): Contrast 2: Total Dose (mL): MEASUREMENTS (Male / Female) Normal Values 2D ECHO LV Diastolic Diameter PLAX 4.5 cm 4.2 - 5.9 / 3.9 - 5.3 cm LV Systolic Diameter PLAX 3.4 cm IVS Diastolic Thickness 0.8 cm 0.6 - 1.0 / 0.6 - 0.9 cm LVPW Diastolic Thickness 1.0 cm 0.6 - 1.0 / 0.6 - 0.9 cm LV Relative Wall Thickness 0.4 RV Internal Dim ED PLAX 2.8 cm LA Volume 52.5 cm??? 18 - 58 / 22 - 52 cm??? M-MODE Aortic Root Diameter MM 2.7 cm LA Systolic Diameter MM 1.9 cm LA Ao Ratio MM 0.7 AV Cusp Separation MM 2.1 cm DOPPLER AV Peak Velocity 133.1 cm/s AV Peak Gradient 7.1 mmHg LVOT Peak Velocity 96.7 cm/s LVOT Peak Gradient 3.7 mmHg MV Area PHT 3.4 cm??? Mitral E Point Velocity 93.1 cm/s Mitral A Point Velocity 94.9 cm/s Mitral E to A Ratio 1.0 MV Deceleration Time 223.9 ms MV E' Velocity 9.1 cm/s Mitral E to MV E' Ratio 10.2 TR Peak Velocity 206.6 cm/s TR Peak Gradient 17.1 mmHg Right Ventricular Systolic Press 22.1 mmHg FINDINGS Left Ventricle Left ventricular cavity size normal. Reduced global left ventricular systolic function. Left ventricular ejection fraction is estimated at 40-45 %. Right Ventricle Normal right ventricular size and function. Right ventricular systolic pressure within normal limits. Right Atrium Normal right atrial size. Left Atrium Left atrial size at the upper limits of normal. Mitral Valve Structurally normal mitral valve. Mild mitral regurgitation. Aortic Valve No aortic valve stenosis or regurgitation. Tricuspid Valve Structurally normal tricuspid valve. Mild tricuspid regurgitation. Pulmonic Valve Structurally normal pulmonic valve. Pericardium No pericardial effusion. Aorta Normal size aortic root and proximal ascending aorta. CONCLUSIONS Mildly impaired LV function with EF between 40-45% Normal intracardiac valves Cannot exclude PFO or ASD Previewed by: Dr. Eliud Emanuel MD (Electronically Signed) Final Date: 28 September 2022 08:44
[2022-09-28] MEDS: levETIRAcetam 500 MG TAB PO SCH ×2 (09:16→22:04)
[2022-09-28] MEDS: AZITHROMYCIN 500 MG TAB PO SCH (09:16)
[2022-09-28] MEDS: MULTIVITAMINS, THERA 1 EACH TAB PO SCH (09:16)
[2022-09-28] MEDS: CHOLECALCIFEROL 25 MCG (1000 IU) TABLET PO SCH (09:16)
[2022-09-28] MEDS: DONEPEZIL 10 MG TAB PO SCH ×2 (09:16→22:03)
[2022-09-28] MEDS: ATORVASTATIN 20 MG TAB PO SCH (09:16)
[2022-09-28] MEDS: MEMANTINE 10 MG TAB PO SCH ×2 (09:24→22:04)
[2022-09-28] MEDS: ALBUTEROL NEBULIZED 2.5 MG/3 ML INHALATION SCH ×4 (09:38→20:49)
[2022-09-28] MEDS: SYMBICORT 160-4.5 MCG INHALER INHALATION SCH ×2 (09:39→20:49)
[2022-09-28 09:54] LABS: Basophils # (A) 0.1 k/uL (0-0.2); Basophils % (A) 1 %; Eosinophils # (A) 0.2 k/uL (0-0.7); Eosinophils % (A) 3 %; HCT 35.6 % (34.0-46.0); HGB 11.8 gm/dL (11.4-16.0); Lymphocytes # (A) 2.1 k/uL (1.0-4.8); Lymphocytes % (A) 23 %; MCH 30.1 pg (25.0-35.0); MCHC 33.1 g/dL (31.0-37.0); MCV 91.1 fL (80.0-100.0); Mean Platelet Volume 9.6; Monocytes # (A) 0.6 k/uL (0-1.0); Monocytes % (A) 7 %; Neutrophils # (A) 5.9 k/uL (1.3-7.7); Neutrophils % (A) 65 %; Platelet Count 261 k/uL (150-450); WBC 9.1 k/uL (3.8-10.6)
[2022-09-28 10:02] LABS: African American GFR (CKD) >90 (>60 ml/min/1.73 sqM); Anion Gap 5 mmol/L; Blood Urea Nitrogen 13 mg/dL (7-17); Calcium 8.3 mg/dL (8.4-10.2); Carbon Dioxide 25 mmol/L (22-30); Chloride 111 mmol/L (98-107); Glucose 87 mg/dL (74-99); Non-African American GFR(CKD) >90 (>60 ml/min/1.73 sqM); Potassium 3.8 mmol/L (3.5-5.1); Sodium 141 mmol/L (137-145)
--- NOTE | 2022-09-28 10:28 | P.PN ---
Subjective Progress Note Date: 09/27/22 Patient was seen for a follow-up. Patient's daughter was present. Patient is still not back to baseline. Still having hard time to breathe. Her walking has improved, but not back to normal. Denies any syncopal spells, or any focal symptoms otherwise. Patient's daughter states that patient had a stroke 22 years ago, which affected her right side. She is to be a very brilliant person, but after her stroke, and then dementia setting, she has developed cognitive problems. She cannot do basic mats. She has hard time talking, can't read or write. Patient also has chronic daily headaches. Patient also has history of hemiplegic migraines. Patient's daughter states that she has multiple TIAs in the past. Apparently MRI of the brain did not reveal any acute stroke. Objective - Vital Signs Vital signs: Vital Signs Temp 97.8 F 09/27/22 15:35 Pulse 72 09/27/22 16:24 Resp 15 09/27/22 16:24 BP 116/61 09/27/22 15:35 Pulse Ox 98 09/27/22 15:35 FiO2 Intake & Output 09/27/22 09/27/22 09/28/22 06:59 18:59 06:59 Intake Total 840 118 Balance 840 118 Intake: IV 360 Invasive Line 1 360 Intake, IV Titration 480 Amount Sodium Chloride 0.9% 1, 480 000 ml @ 60 mls/hr IV . [id number] [facility] Rx#:[id number] Oral 118 Other: Voiding Method Toilet Toilet # Voids 3 - Exam Patient's examination is essentially unchanged. Detailed testing deferred. Patient is laying comfortably in the bed. She smiles, reacts appropriately. Patient has positive palmomental reflex, positive visuospatial apraxia. - Labs CBC & Chem 7: 09/28/22 07:20 09/28/22 07:20 Labs: Abnormal Lab Results - Last 24 Hours (Table) 09/26/22 09/27/22 09/27/22 Range/Units 20:08 08:59 08:59 WBC 12.8 H (3.8-10.6) k/uL Neutrophils # 10.2 H (1.3-7.7) k/uL Chloride 110 H (98-107) mmol/L Glucose 108 H (74-99) mg/dL HDL Cholesterol 64.80 H (40.00-60.00) mg/dL Folate 38.00 H (4.40-31.00) ng/mL Microbiology - Last 24 Hours (Table) 09/26/22 10:58 Legionella Culture - Preliminary Sputum 09/26/22 10:58 Sputum Culture - Preliminary Sputum 09/26/22 11:20 Blood Culture - Preliminary Blood No Growth after 24 hours 09/26/22 11:05 Blood Culture - Preliminary Blood No Growth after 24 hours Assessment and Plan Assessment: * Episode of altered mental status, right arm stiffness, rule out TIA/CVA, rule out focal seizure. Altered mental status could be related to acute pneumonia, but focal stiffness of the right arm is of unclear cause. * Dementia, probably Alzheimer's, with superimposed vascular risk factors and possible stroke/TIA in the past. * Possible COPD exacerbation versus pneumonia. Patient on ceftriaxone and azithromycin. * History of stroke/TIA in the past. * History of hemiplegic migraines * Tobacco use Plan: * MRI of the brain without contrast, revealed no evidence of intracranial mass or acute/subacute infarct. Nonspecific white matter changes likely secondary to small vessel ischemic disease. I personally reviewed MRI, agree with the findings. There is generalized cerebral atrophy, more than patient's chronological age. Also on FLAIR sequences, there is no evidence of previous stroke as patient's family has mentioned. * 2-D echo revealed mildly impaired left ventricular function with EF between 40-45%. Normal intracardiac valves. Cannot exclude PFO or ASD. Consider JEFFERY to rule out embolic source. * Carotid Doppler, revealed no significant stenosis. Antegrade flow in both vertebral arteries. * Fasting a.m. lipid panel with cholesterol 123, LDL 42, HDL 64 and triglycerides 81. * Hemoglobin A1c 6.0. * EEG was abnormal EEG due to background slowing of mild to moderate degree. This is suggestive of generalized cerebral dysfunction as can be seen with encephalopathy related to metabolic, vascular or degenerative etiology. Clinical correlation is recommended. Occasional frontal intermittent rhythmic delta activity was seen, which is nonspecific finding, may suggest underlying cortical dysfunction or may be related to encephalopathy, or may have convulsive tendency. No clear-cut epileptiform activity was seen * Patient had numerous history of TIA/CVA in the past. However MRI of the brain did not show any evidence of recent or remote stroke. Her previous MRI from March 2022 from [facility] also was negative for an acute stroke. With abnormal EEG, I will start patient on antiepileptic medication. Patient will be started on Keppra 500 mg twice a day. Possible side effect of drowsiness, behavioral problems related to Keppra were discussed. * B12 597, folate 38.0, TSH 0.619, RPR nonreactive. MMA, B6 and B1 pending. * Optimize control of blood pressure. * Close neuro checks * Telemetry monitoring rule out any arrhythmia * Continue aspirin 81 mg daily. As she had no evidence of recent or remote stroke, we will continue on aspirin, avoid DAP or switching to Plavix. However may consider JEFFERY rule out embolic source. * Recommend complete tobacco cessation. * DVT prophylaxis: Heparin 5000 units subcu every 8 hours
[2022-09-28] MEDS: SODIUM CHLORIDE 0.9% 1,000 ML IV SCH (11:52)
--- NOTE | 2022-09-28 14:47 | P.PN ---
Subjective Progress Note Date: 09/28/22 52-year-old female seen in the emergency department on September 26, complaining of chest pain. She apparently had not been feeling well for just a few hours or maybe a day or so before admission. She had pressure in the chest primarily on the right side. She also admitted to being short of breath, and was cold, and sweaty. She apparently did not provide most of the history, and it was mostly provided by family members. We see her today in room 385. She sitting in bed, resting comfortably, with her daughter at the bedside. The patient's on room air. The patient's not receiving any IV fluids. The patient was placed on Rocephin and azithromycin for possible pneumonia. The patient did smoke for 40 years. She was smoking time of her admission. She apparently has no significant past medical history other than dementia. White count 12.8, with a normal hemoglobin, hematocrit, and platelet count. Sodium 141, potassium 4, chlorides 110, CO2 27, within normal BUN and creatinine. TSH was normal. Brain MRI was essentially unremarkable, other than for some nonspecific white matter changes. Chest x-ray shows a possible infiltrate adjacent to the right heart border. CT angiogram was negative for pulmonary embolism, but did show a right middle lobe infiltrate. There are also changes consistent with COPD. The patient is seen today 09/28/2022 in follow-up on the selective care unit. S he is currently sitting up in bed. Awake and alert in no acute distress. Maintaining O2 saturations in the 90s on room air. Normal saline at 60 ML's per hour. She is feeling better today compared to yesterday. Blood cultures reveal no growth to date. Sputum culture pending. White count 9.1. Hemoglobin 11.8. Platelets 261. Sodium 141. Potassium 3.8. Bicarb 25. BUN 13. Creatinine 0.46. She remains on Symbicort, albuterol, antibiotics in the form of ceftriaxone. Echocardiogram revealed mildly impaired left ventricular systolic function with ejection fraction 40-45%. No valvular heart disease. Could not exclude PFO or ASD. Objective - Vital Signs Vital signs: Vital Signs Temp 97.7 F 09/28/22 12:00 Pulse 74 09/28/22 12:27 Resp 18 09/28/22 14:00 BP 114/61 09/28/22 12:23 Pulse Ox 99 09/28/22 12:23 FiO2 Intake & Output 09/27/22 09/28/22 09/28/22 18:59 06:59 18:59 Intake Total 118 120 240 Balance 118 120 240 Intake: Intake, IV Titration 120 Amount Sodium Chloride 0.9% 1, 120 000 ml @ 60 mls/hr IV . [id number] [facility] Rx#:[id number] Oral 118 240 Other: Voiding Method Toilet Toilet Toilet # Voids 3 1 1 - Exam GENERAL EXAM: Alert, active, pleasant 52-year-old female, on room air, comfortable in no apparent distress. HEAD: Normocephalic. EYES: Normal reaction of pupils, equal size. NOSE: Clear with pink turbinates. THROAT: No erythema or exudates. NECK: No masses, no JVD. CHEST: No chest wall deformity. LUNGS: Equal air entry with no crackles, wheeze, rhonchi or dullness. CVS: S1 and S2 normal with no audible murmur, regular rhythm. ABDOMEN: No hepatosplenomegaly, normal bowel sounds, no guarding or rigidity. SPINE: No scoliosis or deformity SKIN: No rashes CENTRAL NERVOUS SYSTEM: No focal deficits, tone is normal in all 4 extremities. EXTREMITIES: There is no peripheral edema. No clubbing, no cyanosis. Peripheral pulses are intact. - Labs CBC & Chem 7: 09/28/22 07:20 09/28/22 07:20 Labs: Abnormal Lab Results - Last 24 Hours (Table) 09/27/22 09/27/22 09/28/22 Range/Units 08:59 08:59 07:20 Chloride 111 H (98-107) mmol/L Creatinine 0.46 L (0.52-1.04) mg/dL Calcium 8.3 L (8.4-10.2) mg/dL HDL Cholesterol 64.80 H (40.00-60.00) mg/dL Procalcitonin 0.32 H (0.02-0.09) ng/mL Microbiology - Last 24 Hours (Table) 09/26/22 11:20 Blood Culture - Preliminary Blood No Growth after 48 hours 09/26/22 11:05 Blood Culture - Preliminary Blood No Growth after 48 hours 09/26/22 10:58 Gram Stain - Preliminary Sputum Sputum Culture - Preliminary 09/26/22 10:58 Legionella Culture - Preliminary Sputum Assessment and Plan Assessment: Acute exacerbation of chronic obstructive pulmonary disease, complicated by right-sided pneumonia. Treated with azithromycin and ceftriaxone Altered mental status with right arm stiffness. MRI of the brain revealed no evidence of intracranial mass or acute/subacute infarct Ongoing tobacco use with nicotine addiction. History of dementia. History of CVA. History of angina pectoris. Plan: The patient was seen and evaluated Medications and labs reviewed Stable from the pulmonary standpoint Complete a course of antibiotics Continue pulmonary medications Cardiology consult for possible JEFFERY We will continue to follow I have personally seen and examined the patient, performed the documentation and the assessment and plan as written. Number of minutes spent on the visit: 10.
--- NOTE | 2022-09-28 20:30 | P.PN ---
Subjective Progress Note Date: 09/28/22 This is a 52-year-old female who was recently admitted with chest discomfort associated with shortness of breath and not feeling well over the last few days. Patient also had some weakness of the right arm and undergoing neurological workup. Pulmonary consulted with concerns of possible aspiration pneumonia is there is a chest x-ray did show some right middle lobe infiltrate as well as possible component of COPD exacerbation. Patient discontinued smoking and tobacco cessation was counseled. Patient scheduled for MRI of the brain which is currently pending. Will await reports and discuss further with neurology. Patient is currently afebrile and reports some shortness of breath. Patient den ies chest pain or palpitations currently. No reports of nausea or vomiting and patient tolerating diet 09/28/2022 Patient is seen and evaluated in follow-up currently sitting up in the bed being followed by neurology along with pulmonary. Patient undergoing neurological workup and 2-D echo shows a decreased EF and MRI of the brain was done and given the patient's setting of abnormal echo neurology recommending cardiology consultation for further evaluation and possible JEFFERY. Patient reports to feeling well and denies any deficits and is currently sitting up on room air and denies shortness of breath. Pulmonary following patient is continued on ceftriaxone along with inhaled treatments. Patient is currently afebrile with no reports of chest pain or palpitations noted. No reports of nausea or vomiting noted and patient is tolerating diet. Review of systems: Constitutional: No reports of fatigue, fever, or chills Cardiovascular: No reports of chest pain or palpitations Respiratory: reports of shortness of breath and cough GI: no reports of nausea, no reports of vomiting, or diarrhea : No reports of dysuria or retention Neurovascular: reports of generalized weakness, right side All medications have been reviewed Active Medications Acetaminophen (Acetaminophen Tab 325 Mg Tab) 650 mg PO Q6HR PRN PRN Reason: Fever and/ or Pain Last Admin: 09/26/22 17:51 Dose: 650 mg Albuterol Sulfate (Albuterol Nebulized 2.5 Mg/3 Ml) 2.5 mg INHALATION RT-QID [facility] Last Admin: 09/28/22 16:24 Dose: 2.5 mg Aspirin (Aspirin 81 Mg) 81 mg PO HS [facility] Last Admin: 09/27/22 21:32 Dose: 81 mg Atorvastatin Calcium (Atorvastatin 20 Mg Tab) 20 mg PO DAILY [facility] Last Admin: 09/28/22 09:16 Dose: 20 mg Budesonide/Formoterol Fumarate (Symbicort 160-4.5 Mcg Inhaler) 2 puff INHALATION RT-BID [facility] Last Admin: 09/28/22 09:39 Dose: 2 puff Cholecalciferol (Cholecalciferol 25 Mcg (1000 Iu) Tablet) 25 mcg PO DAILY [facility] Last Admin: 09/28/22 09:16 Dose: 25 mcg Donepezil HCl (Donepezil 10 Mg Tab) 10 mg PO BID [facility] Last Admin: 09/28/22 09:16 Dose: 10 mg Ceftriaxone Sodium 2 gm/ (Sodium Chloride) 50 mls @ 100 mls/hr IVPB Q24HR [facility]; Protocol Stop: 09/30/22 09:29 Last Admin: 09/28/22 09:16 Dose: 100 mls/hr Sodium Chloride (Saline 0.9%) 1,000 mls @ 60 mls/hr IV .[id number] [facility] Last Admin: 09/28/22 11:52 Dose: Not Given Levetiracetam (Levetiracetam 500 Mg Tab) 500 mg PO Q12HR [facility] Last Admin: 09/28/22 09:16 Dose: 500 mg Meclizine HCl (Meclizine 12.5 Mg Tab) 12.5 mg PO TID PRN PRN Reason: Vertigo Memantine (Memantine 10 Mg Tab) 10 mg PO BID [facility] Last Admin: 09/28/22 09:24 Dose: 10 mg Miscellaneous Information (Pneumonia Protocol Utilized 1 Each Misc) 1 each PO ONCE PRN PRN Reason: Per Protocol Multivitamins (Multivitamins, Thera 1 Each Tab) 1 each PO DAILY [facility] Last Admin: 09/28/22 09:16 Dose: 1 each PHYSICAL EXAMINATION: GENERAL: The patient is alert and oriented x2, thin built, elderly appearing HEENT: Pupils are round and equally reacting to light. EOMI. no scleral icterus. No conjunctival pallor. Normocephalic, atraumatic. No pharyngeal erythema. No thyromegaly. CARDIOVASCULAR: S1 and S2 muffled PULMONARY: diminished breath sounds bilaterally with some mild expiratory wheezing and scattered rhonchi noted. ABDOMEN: soft. Nontender on exam. non-distended, normoactive bowel sounds. No palpable organomegaly. MUSCULOSKELETAL: No joint swelling or deformity. EXTREMITIES: No cyanosis, clubbing, or pedal edema. NEUROLOGICAL: Gross neurological examination did not reveal any focal deficits. Diffuse weakness SKIN: No rashes. Assessment: Right middle lobe pneumonia, possibly, rule out aspiration Right arm weakness, possible recent TIA, rule out acute CVA MRI was negative COPD, Acute exacerbation History of CVA/TIA History of memory impairment with dementia History of uterine cancer History of continued ongoing nicotine dependence Elevated d-dimer with no evidence of PE on CT Leukocytosis GI prophylaxis DVT prophylaxis Full code Plan: Recommend to continue with current medications and management with neurology following as well as pulmonary. Cardiology consulted for abnormal echo and neurology recommend JEFFERY for further evaluation. MRI of the brain was negative for acute stroke. Patient is continued on ceftriaxone and will continue patient also has history of COPD with acute exacerbation and will be continued on breathing treatments Recommend PT/OT therapy Will follow-up with repeat labs Due to multiple complex medical issues, prognosis is guarded The impression and plan of care has been dictated by Cassie Verduzco, nurse practitioner as directed. Dr. Enrrique MD I have performed a history and examination and MDM of this patient, discussed the same with the dictator, and agree with the dictator's assessment and plan as written ,documented as a scribe. Based on total visit time, I have performed more than 50% of the visit. Any additional findings or plans will be noted. Objective - Vital Signs Vital signs: Vital Signs Temp 97.9 F 09/28/22 09:15 Pulse 87 09/28/22 09:15 Resp 16 09/28/22 09:15 BP 96/55 09/28/22 09:15 Pulse Ox 100 09/28/22 09:15 FiO2 Intake & Output 09/27/22 09/28/22 09/28/22 18:59 06:59 18:59 Intake Total 118 120 240 Balance 118 120 240 Intake: Intake, IV Titration 120 Amount Sodium Chloride 0.9% 1, 120 000 ml @ 60 mls/hr IV . [id number] [facility] Rx#:[id number] Oral 118 240 Other: Voiding Method Toilet Toilet # Voids 3 1 1 - Labs CBC & Chem 7: 09/28/22 07:20 09/28/22 07:20 Labs: Abnormal Lab Results - Last 24 Hours (Table) 09/27/22 09/27/22 Range/Units 08:59 08:59 Chloride 110 H (98-107) mmol/L Glucose 108 H (74-99) mg/dL HDL Cholesterol 64.80 H (40.00-60.00) mg/dL Procalcitonin 0.32 H (0.02-0.09) ng/mL Microbiology - Last 24 Hours (Table) 09/26/22 10:58 Legionella Culture - Preliminary Sputum 09/26/22 10:58 Sputum Culture - Preliminary Sputum 09/26/22 11:20 Blood Culture - Preliminary Blood No Growth after 24 hours 09/26/22 11:05 Blood Culture - Preliminary Blood No Growth after 24 hours
[2022-09-28] MEDS: ASPIRIN 81 MG PO SCH (22:04)
[2022-09-29 06:22] LABS: Basophils # (A) 0.1 k/uL (0-0.2); Basophils % (A) 1 %; Eosinophils # (A) 0.3 k/uL (0-0.7); Eosinophils % (A) 5 %; HCT 35.3 % (34.0-46.0); HGB 11.7 gm/dL (11.4-16.0); Lymphocytes # (A) 1.9 k/uL (1.0-4.8); Lymphocytes % (A) 31 %; MCH 30.5 pg (25.0-35.0); MCHC 33.1 g/dL (31.0-37.0); MCV 92.1 fL (80.0-100.0); Mean Platelet Volume 8.6; Monocytes # (A) 0.4 k/uL (0-1.0); Monocytes % (A) 7 %; Neutrophils # (A) 3.2 k/uL (1.3-7.7); Neutrophils % (A) 53 %; Platelet Count 289 k/uL (150-450); RBC 3.84 m/uL (3.80-5.40); RDW 13.6 % (11.5-15.5); WBC 6.1 k/uL (3.8-10.6)
[2022-09-29 06:40] LABS: Potassium 4.1 mmol/L (3.5-5.1)
[2022-09-29 06:41] LABS: African American GFR (CKD) >90 (>60 ml/min/1.73 sqM); Anion Gap 6 mmol/L; Blood Urea Nitrogen 15 mg/dL (7-17); Calcium 8.7 mg/dL (8.4-10.2); Carbon Dioxide 24 mmol/L (22-30); Chloride 110 mmol/L (98-107); Glucose 97 mg/dL (74-99); Non-African American GFR(CKD) >90 (>60 ml/min/1.73 sqM); Sodium 140 mmol/L (137-145)
[2022-09-29] MEDS: SODIUM CHLORIDE 0.9% 1,000 ML IV SCH (07:11)
[2022-09-29] MEDS: SYMBICORT 160-4.5 MCG INHALER INHALATION SCH ×2 (09:27→21:07)
[2022-09-29] MEDS: ALBUTEROL NEBULIZED 2.5 MG/3 ML INHALATION SCH ×4 (09:27→21:07)
--- NOTE | 2022-09-29 09:51 | P.PN ---
Subjective Progress Note Date: 09/28/22 Patient was seen for a follow-up. Patient's daughter was present. Patient is getting better. Her walking has improved, but not back to normal. Denies any syncopal spells, or any focal symptoms otherwise. Patient's daughter states that patient had a stroke 22 years ago, which affected her right side. She is to be a very brilliant person, but after her stroke, and then dementia setting, she has developed cognitive problems. She cannot do basic mats. She has hard time talking, can't read or write. Patient also has chronic daily headaches. Patient also has history of hemiplegic migraines. Karoline cristobal's daughter states that she has multiple TIAs in the past. Apparently MRI of the brain did not reveal any acute stroke. Objective - Vital Signs Vital signs: Vital Signs Temp 97.7 F 09/28/22 12:00 Pulse 72 09/28/22 12:24 Resp 18 09/28/22 12:23 BP 114/61 09/28/22 12:23 Pulse Ox 99 09/28/22 12:23 FiO2 Intake & Output 09/27/22 09/28/22 09/28/22 18:59 06:59 18:59 Intake Total 118 120 240 Balance 118 120 240 Intake: Intake, IV Titration 120 Amount Sodium Chloride 0.9% 1, 120 000 ml @ 60 mls/hr IV . [id number] [facility] Rx#:[id number] Oral 118 240 Other: Voiding Method Toilet Toilet Toilet # Voids 3 1 1 - Exam Patient's examination is essentially unchanged. Detailed testing deferred. Patient is laying comfortably in the bed. She smiles, reacts appropriately. Patient walking with the therapist. Patient has positive palmomental reflex, positive visuospatial apraxia. - Labs CBC & Chem 7: 09/29/22 05:43 09/29/22 05:43 Labs: Abnormal Lab Results - Last 24 Hours (Table) 09/27/22 09/27/22 09/28/22 Range/Units 08:59 08:59 07:20 Chloride 111 H (98-107) mmol/L Creatinine 0.46 L (0.52-1.04) mg/dL Calcium 8.3 L (8.4-10.2) mg/dL HDL Cholesterol 64.80 H (40.00-60.00) mg/dL Procalcitonin 0.32 H (0.02-0.09) ng/mL Microbiology - Last 24 Hours (Table) 09/26/22 10:58 Gram Stain - Preliminary Sputum Sputum Culture - Preliminary 09/26/22 10:58 Legionella Culture - Preliminary Sputum 09/26/22 11:20 Blood Culture - Preliminary Blood No Growth after 24 hours 09/26/22 11:05 Blood Culture - Preliminary Blood No Growth after 24 hours Assessment and Plan Assessment: * Episode of altered mental status, right arm stiffness, rule out TIA/CVA, rule out focal seizure. Altered mental status could be related to acute pneumonia, but focal stiffness of the right arm is of unclear cause. * Dementia, probably Alzheimer's, with superimposed vascular risk factors and possible stroke/TIA in the past. * Possible COPD exacerbation versus pneumonia. Patient on ceftriaxone and azithromycin. * History of stroke/TIA in the past. * History of hemiplegic migraines * Tobacco use Plan: * MRI of the brain without contrast, revealed no evidence of intracranial mass or acute/subacute infarct. Nonspecific white matter changes likely secondary to small vessel ischemic disease. I personally reviewed MRI, agree with the findings. There is generalized cerebral atrophy, more than patient's chronological age. Also on FLAIR sequences, there is no evidence of previous stroke as patient's family has mentioned. * 2-D echo revealed mildly impaired left ventricular function with EF between 40-45%. Normal intracardiac valves. Cannot exclude PFO or ASD. Recommend JEFFERY to rule out embolic source. * Carotid Doppler, revealed no significant stenosis. Antegrade flow in both vertebral arteries. * Fasting a.m. lipid panel with cholesterol 123, LDL 42, HDL 64 and triglycerides 81. Continue Lipitor 20 mg daily. * Hemoglobin A1c 6.0. * EEG was abnormal EEG due to background slowing of mild to moderate degree. This is suggestive of generalized cerebral dysfunction as can be seen with encephalopathy related to metabolic, vascular or degenerative etiology. Clinical correlation is recommended. Occasional frontal intermittent rhythmic delta activity was seen, which is nonspecific finding, may suggest underlying cortical dysfunction or may be related to encephalopathy, or may have convulsive tendency. No clear-cut epileptiform activity was seen * Patient had numerous history of TIA/CVA in the past. However MRI of the brain did not show any evidence of recent or remote stroke. Her previous MRI from March 2022 [facility] also was negative for an acute stroke. With abnormal EEG, I will start patient on antiepileptic medication. Patient will be started on Keppra 500 mg twice a day. Possible side effect of drowsiness, behavioral problems related to Keppra were discussed. Patient tolerating Keppra very well. No side effects reported. * B12 597, folate 38.0, TSH 0.619, RPR nonreactive. MMA, B6 and B1 pending. * Optimize control of blood pressure. * Close neuro checks * Telemetry monitoring rule out any arrhythmia * Continue aspirin 81 mg daily. As she had no evidence of recent or remote stroke, we will continue on aspirin, avoid DAP or switching to Plavix. Await JEFFERY. Cardiology consulted. * Recommend complete tobacco cessation. * DVT prophylaxis: Start Heparin 5000 units subcu every 12 hours
[2022-09-29 10:03] LABS: Methylmalonic Acid <0.10 umol/L (<0.40)
[2022-09-29] MEDS: MEMANTINE 10 MG TAB PO SCH ×2 (10:39→22:15)
[2022-09-29] MEDS: CHOLECALCIFEROL 25 MCG (1000 IU) TABLET PO SCH (10:39)
[2022-09-29] MEDS: DONEPEZIL 10 MG TAB PO SCH ×2 (10:39→22:15)
[2022-09-29] MEDS: levETIRAcetam 500 MG TAB PO SCH ×2 (10:40→22:15)
[2022-09-29] MEDS: ATORVASTATIN 20 MG TAB PO SCH (10:40)
[2022-09-29] MEDS: MULTIVITAMINS, THERA 1 EACH TAB PO SCH (10:40)
[2022-09-29] MEDS: HEPARIN SODIUM,PORCINE/PF 5,000 UNIT/0.5 ML SYRINGE SQ SCH ×2 (10:58→22:14)
--- NOTE | 2022-09-29 11:49 | P.CRDCN ---
History of Present Illness Consult date: 09/29/22 History of present illness: HISTORY OF PRESENT ILLNESS: This is a 52-year-old female with a past medical history significant for COPD, nicotine dependence, CVA, recurrent TIA, and dementia. Patient does not follow with a property staff accountant. We have been asked to see the patient in consultation for possible JEFFERY. Patient examined at the bedside. Patient presented to the emergency room with complaints of her right arm "locking up". Patient underwent CT and MRI which are negative for CVA. The patient does report a history of recurrent TIA. She is currently receiving aspirin and Lipitor. * EKG reveals sinus mechanism with T-wave inversions in V3V5 * Carotid Doppler: No significant hemodynamic stenosis visualized * Chest xray negative for acute process * Laboratory data: WBC 6.1. Hemoglobin 11.7. Platelet count 289. Sodium 140. Potassium 4.1. BUN 15. Creatinine 0.44. * Current home cardiac medications include aspirin 81 mg daily and Lipitor 20 mg daily * Echocardiogram completed revealing ejection fraction 40-45%, mild MR, mild TR, cannot exclude PFO or ASD. REVIEW OF SYSTEMS: At the time of my exam: CONSTITUTIONAL: Denies fever or chills. HEENT: Denies blurred vision, vision changes, or eye pain. Denies hemoptysis CARDIOVASCULAR: Denies chest pain. Denies orthopnea. Denies PND. Denies palpitations RESPIRATORY: Denies shortness of breath. GASTROINTESTINAL: Denies abdominal pain. Denies nausea or vomiting. HEMATOLOGIC: Denies bleeding disorders. GENITOURINARY: Denies any blood in urine. SKIN: Denies pruitis. Denies rash. PHYSICAL EXAM: VITAL SIGNS: Reviewed. GENERAL: Well-developed in no acute distress. HEENT: Head is normocephalic. Pupils are equal, round. Sclerae anicteric. Mucous membranes of the mouth are moist. Neck supple. No JVD or thyromegaly LUNGS: Respirations even and unlabored. Lungs essentially clear to auscultation bilaterally. HEART: Regular rate and rhythm. S1 and S2 heard. ABDOMEN: Soft. Nondistended. Nontender. EXTREMITIES: Normal range of motion. No clubbing or cyanosis. Peripheral pulses intact. No lower extremity edema NEUROLOGIC: Awake and alert. Oriented x 3. ASSESSMENT: Right arm stiffness, CT and MRI negative for CVA Right-sided pneumonia History of recurrent TIAs History of CVA Nicotine dependence COPD PLAN: Continue current cardiac medications Continue telemetry monitoring to assess for any arrhythmias Nothing by mouth at midnight Patient to undergo JEFFERY tomorrow with Dr. Emanuel Further recommendations pending patient's course Nurse practitioner note has been reviewed by physician. Signing provider agrees with the documented findings, assessment, and plan of care. Past Medical History Past Medical History: Chest Pain / Angina, CVA/TIA, Memory Impairment Additional Past Medical History / Comment(s): uterice CA with hysterectomy, tubes placed in ears History of Any Multi-Drug Resistant Organisms: None Reported Past Surgical History: Hysterectomy Past Anesthesia/Blood Transfusion Reactions: No Reported Reaction Past Psychological History: No Psychological Hx Reported Smoking Status: Current every day smoker Past Alcohol Use History: None Reported Past Drug Use History: None Reported - Past Family History Mother Family Medical History: Cancer Additional Family Medical History / Comment(s): small cell lung CA, brain tumor Father Family Medical History: Cancer Additional Family Medical History / Comment(s): large cell CA Medications and Allergies Home Medications Medication Instructions Recorded Confirmed Type Aspirin EC [Ecotrin Low Dose] 81 mg PO HS 09/26/22 09/26/22 History Atorvastatin [Lipitor] 20 mg PO DAILY 09/26/22 09/26/22 History Cholecalciferol [Vitamin D3 (25 25 mcg PO DAILY 09/26/22 09/26/22 History Mcg = 1000 Iu)] Donepezil [Aricept] 10 mg PO BID 09/26/22 09/26/22 History Meclizine [Antivert] 12.5 mg PO TID PRN 09/26/22 09/26/22 History Memantine [Namenda] 10 mg PO BID 09/26/22 09/26/22 History Multivitamins, Thera [Multivitamin 1 tab PO DAILY 09/26/22 09/26/22 History (formulary)] Allergies Allergy/AdvReac Type Severity Reaction Status Date / Time No Known Allergies Allergy Verified 09/26/22 11:16 Physical Exam Vitals: Vital Signs Temp Pulse Pulse Pulse Resp BP Pulse Ox 09/29/22 10:33 98.0 F 60 20 103/68 98 09/29/22 04:00 97.8 F 65 16 102/56 98 09/29/22 00:00 97.8 F 65 18 111/58 98 09/28/22 21:02 76 09/28/22 20:51 98 09/28/22 20:50 74 09/28/22 20:00 98 F 75 16 116/74 97 09/28/22 16:36 64 09/28/22 16:27 64 09/28/22 16:00 97.9 F 79 18 112/55 96 09/28/22 14:00 18 09/28/22 12:27 74 09/28/22 12:24 72 09/28/22 12:23 73 18 114/61 99 09/28/22 12:00 97.7 F 70 13 105/68 96 FiO2 09/29/22 10:33 09/29/22 04:00 09/29/22 00:00 09/28/22 21:02 09/28/22 20:51 21 09/28/22 20:50 09/28/22 20:00 09/28/22 16:36 09/28/22 16:27 09/28/22 16:00 09/28/22 14:00 09/28/22 12:27 09/28/22 12:24 09/28/22 12:23 09/28/22 12:00 Intake and Output 09/28/22 09/29/22 09/29/22 22:59 06:59 14:59 Intake Total 100 Balance 100 Intake: Oral 100 Results 09/29/22 05:43 09/29/22 05:43 CBC 09/29/22 Range/Units 05:43 WBC 6.1 (3.8-10.6) k/uL RBC 3.84 (3.80-5.40) m/uL Hgb 11.7 (11.4-16.0) gm/dL Hct 35.3 (34.0-46.0) % Plt Count 289 (150-450) k/uL Comprehensive Metabolic Panel 09/29/22 Range/Units 05:43 Sodium 140 (137-145) mmol/L Potassium 4.1 (3.5-5.1) mmol/L Chloride 110 H (98-107) mmol/L Carbon Dioxide 24 (22-30) mmol/L BUN 15 (7-17) mg/dL Creatinine 0.44 L (0.52-1.04) mg/dL Glucose 97 (74-99) mg/dL Calcium 8.7 (8.4-10.2) mg/dL Current Medications Generic Name Dose Route Start Last Admin Trade Name Freq PRN Reason Stop Dose Admin Acetaminophen 650 mg 09/26/22 17:25 09/26/22 17:51 Acetaminophen Tab 325 Mg Tab PO 650 mg Q6HR PRN Administration Fever and/ or Pain Albuterol Sulfate 2.5 mg 09/27/22 16:00 09/29/22 09:27 Albuterol Nebulized 2.5 Mg/3 Ml INHALATION Not Given RT-QID [facility] Aspirin 81 mg 09/26/22 21:00 09/28/22 22:04 Aspirin 81 Mg PO 81 mg HS [facility] Administration Atorvastatin Calcium 20 mg 09/26/22 16:30 09/29/22 10:40 Atorvastatin 20 Mg Tab PO 20 mg DAILY [facility] Administration Budesonide/Formoterol Fumarate 2 puff 09/27/22 20:00 09/29/22 09:27 Symbicort 160-4.5 Mcg Inhaler INHALATION Not Given RT-BID [facility] Cholecalciferol 25 mcg 09/26/22 16:30 09/29/22 10:39 Cholecalciferol 25 Mcg (1000 Iu) Tablet PO 25 mcg DAILY [facility] Administration Donepezil HCl 10 mg 09/26/22 21:00 09/29/22 10:39 Donepezil 10 Mg Tab PO 10 mg BID [facility] Administration Heparin Sodium (Porcine) 5,000 unit 09/29/22 10:00 09/29/22 10:58 Heparin Sodium,Porcine/Pf 5,000 Unit/0.5 Ml Syringe SQ 5,000 unit Q12HR [facility] Administration Ceftriaxone Sodium 2 gm/ 50 mls @ 100 mls/hr 09/27/22 09:00 09/29/22 10:40 Sodium Chloride IVPB 09/30/22 09:29 100 mls/hr Q24HR [facility] Administration Protocol Sodium Chloride 1,000 mls @ 60 mls/hr 09/26/22 11:15 09/29/22 07:11 Saline 0.9% IV Not Given .[id number] [facility] Levetiracetam 500 mg 09/27/22 21:00 09/29/22 10:40 Levetiracetam 500 Mg Tab PO 500 mg Q12HR [facility] Administration Meclizine HCl 12.5 mg 09/26/22 16:28 Meclizine 12.5 Mg Tab PO TID PRN Vertigo Memantine 10 mg 09/26/22 21:00 09/29/22 10:39 Memantine 10 Mg Tab PO 10 mg BID [facility] Administration Miscellaneous Information 1 each 09/26/22 10:58 Pneumonia Protocol Utilized 1 Each Misc PO ONCE PRN Per Protocol Multivitamins 1 each 09/26/22 16:30 09/29/22 10:40 Multivitamins, Thera 1 Each Tab PO 1 each DAILY [facility] Administration Intake and Output 09/28/22 09/29/22 09/29/22 22:59 06:59 14:59 Intake Total 100 Balance 100 Intake: Oral 100 09/29/22 05:43 09/29/22 05:43
--- NOTE | 2022-09-29 14:37 | P.PN ---
Subjective Progress Note Date: 09/29/22 Principal diagnosis: COPD exacerbation/pneumonia. 52-year-old female seen in the emergency department on September 26, complaining of chest pain. She apparently had not been feeling well for just a few hours or maybe a day or so before admission. She had pressure in the chest primarily on the right side. She also admitted to being short of breath, and was cold, and sweaty. She apparently did not provide most of the history, and it was mostly provided by family members. We see her today in room 385. She sitting in bed, resting comfortably, with her daughter at the bedside. The patient's on room air. The patient's not receiving any IV fluids. The patient was placed on Rocephin and azithromycin for possible pneumonia. The patient did smoke for 40 years. She was smoking time of her admission. She apparently has no significant past medical history other than dementia. White count 12.8, with a normal hemoglobin, hematocrit, and platelet count. Sodium 141, potassium 4, chlorides 110, CO2 27, within normal BUN and creatinine. TSH was normal. Brain MRI was essentially unremarkable, other than for some nonspecific white matter changes. Chest x-ray shows a possible infiltrate adjacent to the right heart border. CT angiogram was negative for pulmonary embolism, but did show a right middle lobe infiltrate. There are also changes consistent with COPD. The patient is seen today 09/28/2022 in follow-up on the selective care unit. She is currently sitting up in bed. Awake and alert in no acute distress. Maintaining O2 saturations in the 90s on room air. Normal saline at 60 ML's per hour. She is feeling better today compared to yesterday. Blood cultures reveal no growth to date. Sputum culture pending. White count 9.1. Hemoglobin 11.8. Platelets 261. Sodium 141. Potassium 3.8. Bicarb 25. BUN 13. Creatinine 0.46. She remains on Symbicort, albuterol, antibiotics in the form of ceftriaxone. Echocardiogram revealed mildly impaired left ventricular systolic function with ejection fraction 40-45%. No valvular heart disease. Could not exclude PFO or ASD. Progress note dated 09/29/2022. The patient is seen today in room 385. She's currently on room air. She's not receiving any IV fluids. All of her culture data thus far is negative. She is scheduled to have a transesophageal echocardiogram. She has no complaints today. White count 6.1, hemoglobin 11.7, hematocrit 35.3, and platelet count 298,000. His sodium 140, potassium 4.1, chlorides 110, CO2 24, BUN 15, and creatinine is 0.44. Pro-calcitonin level was 0.32. All of her culture data is as far negative. Objective - Vital Signs Vital signs: Vital Signs Temp 98.0 F 09/29/22 10:33 Pulse 60 09/29/22 10:33 Resp 20 09/29/22 10:33 BP 103/68 09/29/22 10:33 Pulse Ox 97 09/29/22 12:49 FiO2 21 09/28/22 20:51 Intake & Output 09/28/22 09/29/22 09/29/22 18:59 06:59 18:59 Intake Total 340 118 Balance 340 118 Intake: Oral 340 118 Other: Voiding Method Toilet # Voids 1 3 - Exam No acute distress, oriented 3. No respiratory distress. Only on room air. HEENT examination is grossly unremarkable. Mucous membranes are moist. No oral lesions. Neck supple. Full range of motion. No adenopathy thyromegaly or neck vein distention. Cardiovascular examination reveals regular rhythm rate. S1-S2 normal. No S3 or S4. No discernible murmur noted. Heart rate 65 bpm. Lungs reveal mostly clear breath sounds. Scattered rhonchi. No wheezes. No crackles. Breath sounds equal bilaterally. Room air saturation is 98%. Abdomen soft bowel sounds are heard. No masses or tenderness. Extremities are intact. No cyanosis clubbing or edema. Skin is without rash or lesion. Neurologic examination is brief but nonfocal. - Labs CBC & Chem 7: 09/29/22 05:43 09/29/22 05:43 Labs: Abnormal Lab Results - Last 24 Hours (Table) 09/29/22 Range/Units 05:43 Chloride 110 H (98-107) mmol/L Creatinine 0.44 L (0.52-1.04) mg/dL Microbiology - Last 24 Hours (Table) 09/26/22 11:05 Blood Culture - Preliminary Blood No Growth after 72 hours 09/26/22 11:20 Blood Culture - Preliminary Blood No Growth after 72 hours 09/26/22 10:58 Gram Stain - Final Sputum Sputum Culture - Final Assessment and Plan Assessment: Acute shortness of breath, secondary to COPD exacerbation, complicated by right- sided pneumonia. Ongoing tobacco use with nicotine addiction. History of dementia. History of CVA. History of angina pectoris. Plan: Plan dated 09/27/2022. The patient is currently on azithromycin and Rocephin. The patient is currently being followed by neurology as well. Continue to follow and make recommendations along the way. Prognosis is guarded. We counseled her about the importance of smoking cessation. Plan dated 09/29/2022. Clinically, the patient's doing well. She remains on room air. The patient is not receiving any IV fluids. She apparently is scheduled to have a transesophageal echocardiogram. She is counseled about the importance of smoking cessation. We will continue to follow. Prognosis is guarded. She clarke ins on antibiotics. Time with Patient: Less than 30
--- NOTE | 2022-09-29 18:40 | P.PN ---
Subjective Progress Note Date: 09/29/22 This is a 52-year-old female who was recently admitted with chest discomfort associated with shortness of breath and not feeling well over the last few days. Patient also had some weakness of the right arm and undergoing neurological workup. Pulmonary consulted with concerns of possible aspiration pneumonia is there is a chest x-ray did show some right middle lobe infiltrate as well as possible component of COPD exacerbation. Patient discontinued smoking and tobacco cessation was counseled. Patient scheduled for MRI of the brain which is currently pending. Will await reports and discuss further with neurology. Patient is currently afebrile and reports some shortness of breath. Patient den ies chest pain or palpitations currently. No reports of nausea or vomiting and patient tolerating diet 09/28/2022 Patient is seen and evaluated in follow-up currently sitting up in the bed being followed by neurology along with pulmonary. Patient undergoing neurological workup and 2-D echo shows a decreased EF and MRI of the brain was done and given the patient's setting of abnormal echo neurology recommending cardiology consultation for further evaluation and possible JEFFERY. Patient reports to feeling well and denies any deficits and is currently sitting up on room air and denies shortness of breath. Pulmonary following patient is continued on ceftriaxone along with inhaled treatments. Patient is currently afebrile with no reports of chest pain or palpitations noted. No reports of nausea or vomiting noted and patient is tolerating diet. 09/29/2022 Patient is seen this morning with no acute overnight issues noted. Patient did have an abnormal 2-D echo and unable to exclude PFO with neurology following closely has consulted cardiology for JEFFERY. Patient was tentatively scheduled today for the JEFFERY although unavailable time and will undergo procedure in the morning. Patient also being followed by pulmonary and WBC has improved and patient is above 95% on room air. Patient denies chest pain or shortness of breath. Patient continues to ask when she will be able to go home. Will follow up with neurology and cardiology after tomorrow's JEFFERY. Patient is afebrile and reports tolerating diet with no reports of nausea or vomiting noted. Review of systems: Constitutional: No reports of fatigue, fever, or chills Cardiovascular: No reports of chest pain or palpitations Respiratory: no reports of shortness of breath slight cough GI: no reports of nausea, no reports of vomiting, or diarrhea : No reports of dysuria or retention Neurovascular: reports of generalized weakness, right side although feels improved All medications have been reviewed Active Medications Acetaminophen (Acetaminophen Tab 325 Mg Tab) 650 mg PO Q6HR PRN PRN Reason: Fever and/ or Pain Last Admin: 09/26/22 17:51 Dose: 650 mg Albuterol Sulfate (Albuterol Nebulized 2.5 Mg/3 Ml) 2.5 mg INHALATION RT-QID [facility] Last Admin: 09/29/22 15:57 Dose: Not Given Aspirin (Aspirin 81 Mg) 81 mg PO HS [facility] Last Admin: 09/28/22 22:04 Dose: 81 mg Atorvastatin Calcium (Atorvastatin 20 Mg Tab) 20 mg PO DAILY [facility] Last Admin: 09/29/22 10:40 Dose: 20 mg Budesonide/Formoterol Fumarate (Symbicort 160-4.5 Mcg Inhaler) 2 puff INHALATION RT-BID [facility] Last Admin: 09/29/22 09:27 Dose: Not Given Cholecalciferol (Cholecalciferol 25 Mcg (1000 Iu) Tablet) 25 mcg PO DAILY [facility] Last Admin: 09/29/22 10:39 Dose: 25 mcg Donepezil HCl (Donepezil 10 Mg Tab) 10 mg PO BID [facility] Last Admin: 09/29/22 10:39 Dose: 10 mg Heparin Sodium (Porcine) (Heparin Sodium,Porcine/Pf 5,000 Unit/0.5 Ml Syringe) 5,000 unit SQ Q12HR [facility] Last Admin: 09/29/22 10:58 Dose: 5,000 unit Ceftriaxone Sodium 2 gm/ (Sodium Chloride) 50 mls @ 100 mls/hr IVPB Q24HR [facility]; Protocol Stop: 09/30/22 09:29 Last Admin: 09/29/22 10:40 Dose: 100 mls/hr Sodium Chloride (Saline 0.9%) 1,000 mls @ 60 mls/hr IV .[id number] [facility] Last Admin: 09/29/22 07:11 Dose: Not Given Levetiracetam (Levetiracetam 500 Mg Tab) 500 mg PO Q12HR [facility] Last Admin: 09/29/22 10:40 Dose: 500 mg Meclizine HCl (Meclizine 12.5 Mg Tab) 12.5 mg PO TID PRN PRN Reason: Vertigo Memantine (Memantine 10 Mg Tab) 10 mg PO BID [facility] Last Admin: 09/29/22 10:39 Dose: 10 mg Miscellaneous Information (Pneumonia Protocol Utilized 1 Each Misc) 1 each PO ONCE PRN PRN Reason: Per Protocol Multivitamins (Multivitamins, Thera 1 Each Tab) 1 each PO DAILY [facility] Last Admin: 09/29/22 10:40 Dose: 1 each PHYSICAL EXAMINATION: GENERAL: The patient is alert and oriented x2, thin built, elderly appearing HEENT: Pupils are round and equally reacting to light. EOMI. no scleral icterus. No conjunctival pallor. Normocephalic, atraumatic. No pharyngeal erythema. No thyromegaly. CARDIOVASCULAR: S1 and S2 muffled PULMONARY: diminished breath sounds bilaterally with some scattered rhonchi noted. ABDOMEN: soft. Nontender on exam. non-distended, normoactive bowel sounds. No palpable organomegaly. MUSCULOSKELETAL: No joint swelling or deformity. EXTREMITIES: No cyanosis, clubbing, or pedal edema. NEUROLOGICAL: Gross neurological examination did not reveal any focal deficits. Diffuse weakness SKIN: No rashes. Assessment: Right middle lobe pneumonia, possibly, rule out aspiration Right arm weakness, possible recent TIA, rule out acute CVA, MRI was negative COPD, Acute exacerbation History of CVA/TIA History of memory impairment with dementia History of uterine cancer History of continued ongoing nicotine dependence Elevated d-dimer with no evidence of PE on CT Leukocytosis improved GI prophylaxis DVT prophylaxis Full code Plan: Recommend to continue with current medications and management with neurology following as well as pulmonary. Cardiology following for abnormal echo and neurology recommend JEFFERY for further evaluation. MRI of the brain was negative for acute stroke. Patient is scheduled for JEFFERY in the a.m. with Dr. Emanuel Patient is continued on ceftriaxone and will continue patient also has history of COPD with acute exacerbation and will be continued on breathing treatments Recommend PT/OT therapy Will follow-up with repeat labs Due to multiple complex medical issues, prognosis is guarded Will discuss with neurology and cardiology and if JEFFERY is negative, possible discharge within the next 24-48 hours The impression and plan of care has been dictated by Cassie Verduzco, nurse practitioner as directed. Dr. Enrrique MD I have performed a history and examination and MDM of this patient, discussed the same with the dictator, and agree with the dictator's assessment and plan as written ,documented as a scribe. Based on total visit time, I have performed more than 50% of the visit. Any additional findings or plans will be noted. Objective - Vital Signs Vital signs: Vital Signs Temp 98.0 F 09/29/22 10:33 Pulse 60 09/29/22 10:33 Resp 20 09/29/22 10:33 BP 103/68 09/29/22 10:33 Pulse Ox 97 09/29/22 12:49 FiO2 21 09/28/22 20:51 Intake & Output 09/28/22 09/29/22 09/29/22 18:59 06:59 18:59 Intake Total 340 118 Balance 340 118 Intake: Oral 340 118 Other: Voiding Method Toilet # Voids 1 - Labs CBC & Chem 7: 09/29/22 05:43 09/29/22 05:43 Labs: Abnormal Lab Results - Last 24 Hours (Table) 09/29/22 Range/Units 05:43 Chloride 110 H (98-107) mmol/L Creatinine 0.44 L (0.52-1.04) mg/dL Microbiology - Last 24 Hours (Table) 09/26/22 10:58 Gram Stain - Final Sputum Sputum Culture - Final 09/26/22 11:20 Blood Culture - Preliminary Blood No Growth after 48 hours 09/26/22 11:05 Blood Culture - Preliminary Blood No Growth after 48 hours
[2022-09-29] MEDS: ASPIRIN 81 MG PO SCH (22:15)
[2022-09-30] MEDS ORDERED: fentaNYL (PF) 50 MCG/ML 2 ML AMP ONE ×2 (09:04→10:59)
[2022-09-30] MEDS: ALBUTEROL NEBULIZED 2.5 MG/3 ML INHALATION SCH ×4 (09:12→19:56)
[2022-09-30] MEDS: SYMBICORT 160-4.5 MCG INHALER INHALATION SCH ×2 (09:13→19:56)
[2022-09-30] MEDS: BENZOCAINE SPRAY 1 CAN MUCOUS MEM ONE ×2 (09:16→09:32)
[2022-09-30] MEDS ORDERED: IV FLUID CONTINUATION 1,000 ML IV ONE (09:18)
[2022-09-30] MEDS ORDERED: MIDAZOLAM 2 MG/2 ML VIAL IV ONE ×3 (09:32→10:56)
[2022-09-30] MEDS ORDERED: fentaNYL (PF) 50 MCG/ML 2 ML AMP IV ONE ×3 (09:32→11:02)
--- NOTE | 2022-09-30 09:32 | P.PN ---
Subjective Progress Note Date: 09/29/22 Patient was seen for a follow-up. Patient is sitting comfortably in the bed. Patient could not have JEFFERY performed due to some scheduling issues with Dr. Finnegan. Denies any new neurological symptoms. Objective - Vital Signs Vital signs: Vital Signs Temp 97.6 F 09/29/22 23:45 Pulse 57 L 09/30/22 09:19 Resp 18 09/30/22 09:19 BP 115/56 09/30/22 09:19 Pulse Ox 99 09/30/22 09:19 FiO2 21 09/28/22 20:51 Intake & Output 09/29/22 09/30/22 09/30/22 18:59 06:59 18:59 Intake Total 118 Balance 118 Intake: Oral 118 Other: # Voids 3 - Exam Patient's examination is essentially unchanged. Detailed testing deferred. Patient is laying comfortably in the bed. She smiles, reacts appropriately. - Labs CBC & Chem 7: 09/29/22 05:43 09/29/22 05:43 Labs: Microbiology - Last 24 Hours (Table) 09/26/22 11:05 Blood Culture - Preliminary Blood No Growth after 72 hours 09/26/22 11:20 Blood Culture - Preliminary Blood No Growth after 72 hours 09/26/22 10:58 Gram Stain - Final Sputum Sputum Culture - Final Assessment and Plan Assessment: * Episode of altered mental status, right arm stiffness, rule out TIA/CVA, rule out focal seizure. Altered mental status could be related to acute pneumonia, but focal stiffness of the right arm is of unclear cause. * Dementia, probably Alzheimer's, with superimposed vascular risk factors and possible stroke/TIA in the past. * Possible COPD exacerbation versus pneumonia. Patient on ceftriaxone and azithromycin. * History of stroke/TIA in the past. * History of hemiplegic migraines * Tobacco use Plan: * Await JEFFERY * MRI of the brain without contrast, revealed no evidence of intracranial mass or acute/subacute infarct. Nonspecific white matter changes likely secondary to small vessel ischemic disease. I personally reviewed MRI, agree with the findings. There is generalized cerebral atrophy, more than patient's chronological age. Also on FLAIR sequences, there is no evidence of previous stroke as patient's family has mentioned. * 2-D echo revealed mildly impaired left ventricular function with EF between 40-45%. Normal intracardiac valves. Cannot exclude PFO or ASD. Recommend JEFFERY to rule out embolic source. * Carotid Doppler, revealed no significant stenosis. Antegrade flow in both vertebral arteries. * Fasting a.m. lipid panel with cholesterol 123, LDL 42, HDL 64 and triglycerides 81. Continue Lipitor 20 mg daily. * Hemoglobin A1c 6.0. * EEG was abnormal EEG due to background slowing of mild to moderate degree. This is suggestive of generalized cerebral dysfunction as can be seen with encephalopathy related to metabolic, vascular or degenerative etiology. Clinical correlation is recommended. Occasional frontal intermittent rhythmic delta activity was seen, which is nonspecific finding, may suggest underlying cortical dysfunction or may be related to encephalopathy, or may have convulsive tendency. No clear-cut epileptiform activity was seen * Patient had numerous history of TIA/CVA in the past. However MRI of the brain did not show any evidence of recent or remote stroke. Her previous MRI from March 2022 from [facility] also was negative for an acute stroke. With abnormal EEG, I will start patient on antiepileptic medication. Patient will be started on Keppra 500 mg twice a day. Possible side effect of drowsiness, behavioral problems related to Keppra were discussed. Patient tolerating Keppra very well. No side effects reported. * B12 597, folate 38.0, TSH 0.619, RPR nonreactive. MMA <0.10, B6 12, both norm al and B1 pending. * Optimize control of blood pressure. * Close neuro checks * Telemetry monitoring rule out any arrhythmia * Continue aspirin 81 mg daily. As she had no evidence of recent or remote stroke, we will continue on aspirin, avoid DAP or switching to Plavix. Await JEFFERY. Cardiology consulted. * Recommend complete tobacco cessation. * DVT prophylaxis: Start Heparin 5000 units subcu every 12 hours
--- NOTE | 2022-09-30 09:50 | XR ---
EXAMINATION TYPE: XR chest 2V DATE OF EXAM: 09/30/2022 COMPARISON: 09/27/2022 TECHNIQUE: PA and lateral views submitted. HISTORY: Cough FINDINGS: Persistent subsegmental consolidation along the medial aspect of the right lung base.. Heart size no rmal and no overt failure. Osseous structures demonstrate hypertrophic and degenerative changes of th e spine. Hyperinflation suggests COPD. IMPRESSION: 1. A persistent consolidation medial aspect right lung base. 2. COPD.
--- NOTE | 2022-09-30 09:56 | P.PCN ---
Date of Procedure: 09/30/22 Operative Findings: TRANSESOPHAGEAL ECHOCARDIOGRAM MANAGER MULTICULTURAL: BROOKLYN SERRANO MD, RPVI INDICATION: Stroke SEDATION: Conscious sedation COMPLICATION: None LEVEL OF SEDATION Moderate sedation length of 15 minutes PROCEDURE DESCRIPTION: After obtaining an informed consent, the patient was brought to transesophageal echocardiogram room. Pulse oximetry and heart monitors were attached to the patient. The patient throat was sprayed using lidocaine. The patient was turned into left lateral position. After that a bite guard was placed. After an appropriate conscious sedation was initiated, the transesophageal echocardiogram was advanced through a bite guard into the mid esophagus. A 2-D echocardiogram images, color Doppler images, continuous wave images, pulse-wave images, of various cardiac structure were performed. After that the transesophageal echocardiogram probe was advanced into the stomach and fixed to obtain transgastric view was. The probe was brought into the mid esophagus. Inter-atrial septum was interrogated using 2D images, color Doppler images, and then contrast study. After that transesophageal echocardiogram was withdrawn out and upon withdrawing the descending thoracic aorta all the way up to the arch was evaluated. FINDING: The left ventricular dimension and systolic function appeared to be normal. The ejection fraction appeared to be in the range of 55-60%. The right ventricle appeared to be of normal size and function. The left atrial appendage appeared to be free from any thrombus. The interatrial septum appeared to be mildly aneurysmal was evidence of patent foramen ovale and [id number] shunt identified. The aortic valve is trileaflet valve with no stenosis or regurgitation but the valve is a sclerotic. The mitral valve seems to be normal was mild MR only. Normal tricuspid valve and pulmonic valve. CONCLUSION: 1. Aneurysmal interatrial septum with evidence of patent foramen ovale and [id number] shunt 2. Intact left atrial appendage 3. Normal biventricular dimension and systolic function 4. Aortic sclerosis with no stenosis or regurgitation 5. Normal mitral valve leaflets with mild MR 6. No evidence of pericardial effusion
[2022-09-30] MEDS: SODIUM CHLORIDE 0.9% 1,000 ML IV SCH (10:02)
[2022-09-30] MEDS ORDERED: ATORVASTATIN 80 MG TAB PO STA (10:22)
[2022-09-30] MEDS ORDERED: ASPIRIN 325 MG TAB PO STA (10:22)
[2022-09-30] MEDS ORDERED: NITROGLYCERIN SL TABS 0.4 MG TAB SUBLINGUAL PRN (10:22)
[2022-09-30] MEDS ORDERED: ALPRAZolam 0.5 MG TAB PO PRN (10:22)
[2022-09-30] MEDS ORDERED: ALPRAZolam 0.25 MG TAB PO PRN (10:22)
[2022-09-30] MEDS: levETIRAcetam 500 MG TAB PO SCH ×2 (10:36→21:50)
[2022-09-30] MEDS ORDERED: SODIUM CHLORIDE 0.9% 1,000 ML IV ONE (11:03)
[2022-09-30] MEDS ORDERED: HEPARIN SODIUM 1,000 UN/ML (10ML VL) IV ONE (11:09)
--- NOTE | 2022-09-30 11:18 | P.PN ---
Subjective Progress Note Date: 09/30/22 HISTORY OF PRESENT ILLNESS: This is a 52-year-old female with a past medical history significant for COPD, nicotine dependence, CVA, recurrent TIA, and dementia. Patient does not follow with a operations vocational instructor. We have been asked to see the patient in consultation for possible JEFFERY. Patient examined at the bedside. Patient presented to the emergency room with complaints of her right arm "locking up". Patient underwent CT and MRI which are negative for CVA. The patient does report a history of recurrent TIA. She is currently receiving aspirin and Lipitor. * EKG reveals sinus mechanism with T-wave inversions in V3V5 * Carotid Doppler: No significant hemodynamic stenosis visualized * Chest xray negative for acute process * Laboratory data: WBC 6.1. Hemoglobin 11.7. Platelet count 289. Sodium 140. Potassium 4.1. BUN 15. Creatinine 0.44. * Current home cardiac medications include aspirin 81 mg daily and Lipitor 20 mg daily * Echocardiogram completed revealing ejection fraction 40-45%, mild MR, mild TR, cannot exclude PFO or ASD. 09/30/2022 Patient underwent JEFFERY today revealing patent sands ovale and [id number] shunt with Dr. Emanuel. Patient is going to undergo closure of PFO with Dr. Emanuel today PHYSICAL EXAM: VITAL SIGNS: Reviewed. GENERAL: Well-developed in no acute distress. HEENT: Head is normocephalic. Pupils are equal, round. Sclerae anicteric. Mucous membranes of the mouth are moist. Neck supple. No JVD or thyromegaly LUNGS: Respirations even and unlabored. Lungs essentially clear to auscultation bilaterally. HEART: Regular rate and rhythm. S1 and S2 heard. ABDOMEN: Soft. Nondistended. Nontender. EXTREMITIES: Normal range of motion. No clubbing or cyanosis. Peripheral pulses intact. No lower extremity edema NEUROLOGIC: Awake and alert. Oriented x 3. ASSESSMENT: Right arm stiffness, CT and MRI negative for CVA Right-sided pneumonia History of recurrent TIAs History of CVA Nicotine dependence COPD PLAN: Continue current cardiac medications Continue telemetry monitoring to assess for any arrhythmias Patient underwent JEFFERY today revealing patent sands ovale and [id number] shunt. Patient is going to undergo closure of PFO with Dr. Emanuel today Further recommendations pending patient's course Nurse practitioner note has been reviewed by physician. Signing provider agrees with the documented findings, assessment, and plan of care. Objective - Vital Signs Vital signs: Vital Signs Temp 97.6 F 09/29/22 23:45 Pulse 61 09/30/22 09:40 Resp 18 09/30/22 09:40 BP 118/58 09/30/22 09:40 Pulse Ox 98 09/30/22 09:40 FiO2 21 09/28/22 20:51 Intake & Output 09/29/22 09/30/22 09/30/22 18:59 06:59 18:59 Intake Total 118 125 Balance 118 125 Intake: IV 125 Oral 118 Other: # Voids 3 - Labs CBC & Chem 7: 09/29/22 05:43 09/29/22 05:43 Labs: Microbiology - Last 24 Hours (Table) 09/26/22 11:05 Blood Culture - Preliminary Blood No Growth after 72 hours 09/26/22 11:20 Blood Culture - Preliminary Blood No Growth after 72 hours 09/26/22 10:58 Gram Stain - Final Sputum Sputum Culture - Final
[2022-09-30] MEDS ORDERED: IOPAMIDOL-250 100ML BTL INTRAARTER ONE (11:20)
[2022-09-30] MEDS ORDERED: CLOPIDOGREL 75 MG TAB ONE (11:22)
[2022-09-30] MEDS ORDERED: CLOPIDOGREL 75 MG TAB PO ONE (11:27)
--- NOTE | 2022-09-30 11:31 | P.PCN ---
Date of Procedure: 09/30/22 Operative Findings: PERCUTANEOUS CLOSURE OF FENESTRATED INTERATRIAL SEPTUM PERFORMING PHYSICIAN: Eliud Emanuel MD, VI PROCEDURE PERFORMED: 1. Successful percutaneous closure of PFO using 30 mm Amplatzer PFO Occluder with an excellent results and without any residual shunt. 2. Intracardiac echocardiogram imaging. 3. Right atrial angiogram. 4. Ultrasound-guided access of the right common femoral vein 2 INDICATION: 52-year-old female patient was admitted to the hospital with a stroke. She underwent transesophageal echocardiogram and that revealed patent foramen ovale with [id number] shunt APPROACH: Right common femoral vein 2 COMPLICATION: None. LEVEL OF SEDATION: Moderate with sedation length of 28 minutes. PROCEDURE DESCRIPTION: After obtaining informed consent, the patient was brought to the cardiac field laboratory operator. The right common femoral vein was cannulated x2 using micropuncture technique under ultrasound guidance, the micropuncture wire passed easily, then I placed two 8-[place] sheath in the right groin. Subsequently I cannulated the left common femoral vein with the same technique and I placed an 8-[place] sheath there as well. At that point, anticoagulation was initiated using heparin and the patient was given a bolus of 4,000 units of heparin IV with continuous ACT monitoring throughout the procedure. After that, the intracardiac echocardiogram probe was advanced through one of the venous sheath all the way to the right atrium where we did interrogate the interatrial septum and identified the patent foramen ovale which was measured about 30 mm. Subsequently, I did cross the defect using 0.035 J-wire with the backup support of multipurpose catheter. The wire was advanced all the way to the left upper pulmonary vein and subsequently the catheter was advanced over the wire to the left upper pulmonary vein. The 0.035 J-wire was pulled out and then I advanced a seth wire. Subsequently, the multipurpose catheter was withdrawn out and the wire was left in the left upper pulmonary vein. After that, I did prep the Amplatzer PFO occluder under saline. The device was loaded into the package dye stand loader, which was attached to the sheath. Subsequently, I did exchange my 8-[place] sheath into the Shuttle sheath over a 0.035 seth wire. The sheath was advanced all the way under fluoroscopy guidance to the left atrium. Subsequently, the dilator of the sheath was withdrawn out along with the wire. After that, I did load the Amplatzer occluder under continuous saline flush to the sheath. The device was advanced all the way through the sheath were I did where I did deploy initially the left atrial occluder and then I pulled back the sheath and the left atrial occluder all the way to the interatrial septum and then I deployed the right atrial occluder after that. Before I released the device, I did interrogate the septum using ice images on multiple views. After I realized that the device was stable enough and in good position the device was released. Interrogation using ice was also performed after the device was released. By the end I did right atrial angiogram. The procedure was completed without any complication. POSTPROCEDURE MANAGEMENT: 1. Dual anti-platelet therapy. 2. An echo in 24 hours, in 1 week, in 4 weeks, as well as in 6 months.
[2022-09-30 11:51] LABS: Vit B1(Thiamine) 96 ug/L (38-122)
[2022-09-30] MEDS: ATORVASTATIN 20 MG TAB PO SCH (11:51)
[2022-09-30] MEDS: MULTIVITAMINS, THERA 1 EACH TAB PO SCH (11:55)
[2022-09-30] MEDS: ACETAMINOPHEN TAB 325 MG TAB PO PRN (11:55)
[2022-09-30] MEDS: CHOLECALCIFEROL 25 MCG (1000 IU) TABLET PO SCH (11:56)
[2022-09-30] MEDS: HEPARIN SODIUM,PORCINE/PF 5,000 UNIT/0.5 ML SYRINGE SQ SCH ×2 (11:56→21:50)
[2022-09-30] MEDS: DONEPEZIL 10 MG TAB PO SCH ×2 (11:56→21:50)
[2022-09-30] MEDS: MEMANTINE 10 MG TAB PO SCH ×2 (11:56→21:50)
--- NOTE | 2022-09-30 13:49 | P.PN ---
Subjective Progress Note Date: 09/30/22 52-year-old female seen in the emergency department on September 26, complaining of chest pain. She apparently had not been feeling well for just a few hours or maybe a day or so before admission. She had pressure in the chest primarily on the right side. She also admitted to being short of breath, and was cold, and sweaty. She apparently did not provide most of the history, and it was mostly provided by family members. We see her today in room 385. She sitting in bed, resting comfortably, with her daughter at the bedside. The patient's on room air. The patient's not receiving any IV fluids. The patient was placed on Rocephin and azithromycin for possible pneumonia. The patient did smoke for 40 years. She was smoking time of her admission. She apparently has no significant past medical history other than dementia. White count 12.8, with a normal hemoglobin, hematocrit, and platelet count. Sodium 141, potassium 4, chlorides 110, CO2 27, within normal BUN and creatinine. TSH was normal. Brain MRI was essentially unremarkable, other than for some nonspecific white matter changes. Chest x-ray shows a possible infiltrate adjacent to the right heart border. CT angiogram was negative for pulmonary embolism, but did show a right middle lobe infiltrate. There are also changes consistent with COPD. The patient is seen today 09/28/2022 in follow-up on the selective care unit. S he is currently sitting up in bed. Awake and alert in no acute distress. Maintaining O2 saturations in the 90s on room air. Normal saline at 60 ML's per hour. She is feeling better today compared to yesterday. Blood cultures reveal no growth to date. Sputum culture pending. White count 9.1. Hemoglobin 11.8. Platelets 261. Sodium 141. Potassium 3.8. Bicarb 25. BUN 13. Creatinine 0.46. She remains on Symbicort, albuterol, antibiotics in the form of ceftriaxone. Echocardiogram revealed mildly impaired left ventricular systolic function with ejection fraction 40-45%. No valvular heart disease. Could not exclude PFO or ASD. The patient is seen today 09/30/2022 in follow-up on the selective care unit. she continues to do well. Maintaining good O2 saturations in the high 90s on room air. afebrile. Hemodynamically stable. she did undergo JEFFERY and was found to have a patent foramen ovale with right to left shunt. She had undergone successful percutaneous closure of the PFO without any residual shunt. Objective - Vital Signs Vital signs: Vital Signs Temp 98.1 F 09/30/22 11:49 Pulse 80 09/30/22 13:12 Resp 18 09/30/22 11:49 BP 101/65 09/30/22 13:12 Pulse Ox 99 09/30/22 12:30 FiO2 21 09/28/22 20:51 Intake & Output 09/29/22 09/30/22 09/30/22 18:59 06:59 18:59 Intake Total 118 325 Balance 118 325 Intake: IV 325 Oral 118 Other: # Voids 3 1 - Exam GENERAL EXAM: Alert, 52-year-old female, on room air, comfortable in no apparent distress. HEAD: Normocephalic. EYES: Normal reaction of pupils, equal size. NOSE: Clear with pink turbinates. THROAT: No erythema or exudates. NECK: No masses, no JVD. CHEST: No chest wall deformity. LUNGS: Equal air entry with no crackles, wheeze, rhonchi or dullness. CVS: S1 and S2 normal with no audible murmur, regular rhythm. ABDOMEN: No hepatosplenomegaly, normal bowel sounds, no guarding or rigidity. SPINE: No scoliosis or deformity SKIN: No rashes CENTRAL NERVOUS SYSTEM: No focal deficits, tone is normal in all 4 extremities. EXTREMITIES: There is no peripheral edema. No clubbing, no cyanosis. Peripheral pulses are intact. - Labs CBC & Chem 7: 09/29/22 05:43 09/29/22 05:43 Labs: Microbiology - Last 24 Hours (Table) 09/26/22 11:05 Blood Culture - Preliminary Blood No Growth after 96 hours 09/26/22 11:20 Blood Culture - Preliminary Blood No Growth after 96 hours 09/26/22 10:58 Gram Stain - Final Sputum Sputum Culture - Final Assessment and Plan Assessment: Acute exacerbation of chronic obstructive pulmonary disease, complicated by right-sided pneumonia. Treated with azithromycin and ceftriaxone Altered mental status with right arm stiffness. MRI of the brain revealed no evidence of intracranial mass or acute/subacute infarct Patent foramen ovale with [id number] shunt. Status post percutaneous closure of the PFO without any residual shunt. Postoperative day #0 Ongoing tobacco use with nicotine addiction. History of dementia. History of CVA. History of angina pectoris. Plan: The patient was seen and evaluated Medications and procedure note reviewed Stable from the pulmonary standpoint Continue pulmonary medications Home once cleared by neurology/cardiology I have personally seen and examined the patient, performed the documentation and the assessment and plan as written. Number of minutes spent on the visit: 10.
[2022-09-30 20:06] VITALS: RESP 18
--- NOTE | 2022-09-30 23:43 | P.PN ---
Subjective Progress Note Date: 09/30/22 This is a 52-year-old female who was recently admitted with chest discomfort associated with shortness of breath and not feeling well over the last few days. Patient also had some weakness of the right arm and undergoing neurological workup. Pulmonary consulted with concerns of possible aspiration pneumonia is there is a chest x-ray did show some right middle lobe infiltrate as well as possible component of COPD exacerbation. Patient discontinued smoking and tobacco cessation was counseled. Patient scheduled for MRI of the brain which is currently pending. Will await reports and discuss further with neurology. Patient is currently afebrile and reports some shortness of breath. Patient den ies chest pain or palpitations currently. No reports of nausea or vomiting and patient tolerating diet 09/28/2022 Patient is seen and evaluated in follow-up currently sitting up in the bed being followed by neurology along with pulmonary. Patient undergoing neurological workup and 2-D echo shows a decreased EF and MRI of the brain was done and given the patient's setting of abnormal echo neurology recommending cardiology consultation for further evaluation and possible JEFFERY. Patient reports to feeling well and denies any deficits and is currently sitting up on room air and denies shortness of breath. Pulmonary following patient is continued on ceftriaxone along with inhaled treatments. Patient is currently afebrile with no reports of chest pain or palpitations noted. No reports of nausea or vomiting noted and patient is tolerating diet. 09/29/2022 Patient is seen this morning with no acute overnight issues noted. Patient did have an abnormal 2-D echo and unable to exclude PFO with neurology following closely has consulted cardiology for JEFFERY. Patient was tentatively scheduled today for the JEFFERY although unavailable time and will undergo procedure in the morning. Patient also being followed by pulmonary and WBC has improved and patient is above 95% on room air. Patient denies chest pain or shortness of breath. Patient continues to ask when she will be able to go home. Will follow up with neurology and cardiology after tomorrow's JEFFERY. Patient is afebrile and reports tolerating diet with no reports of nausea or vomiting noted. 09/30/2022 Patient is seen and evaluated this morning with neurology and cardiology following. Patient underwent JEFFERY which showed PFO and recommending PFO closure. Pulmonary following as well and stable and maintained room air with no white blood count and will await official report. Patient and family are agreeable with surgical intervention and Dr. Emanuel will be performing. Patient is afebrile with no reports of nausea or vomiting noted. Patient denies chest pain or shortness of breath. Review of systems: Constitutional: No reports of fatigue, fever, or chills Cardiovascular: No reports of chest pain or palpitations Respiratory: no reports of shortness of breath slight cough GI: no reports of nausea, no reports of vomiting, or diarrhea : No reports of dysuria or retention Neurovascular: reports of generalized weakness, right side although feels improved All medications have been reviewed Active Medications Acetaminophen (Acetaminophen Tab 325 Mg Tab) 650 mg PO Q6HR PRN PRN Reason: Fever and/ or Pain Last Admin: 09/30/22 11:55 Dose: 650 mg Albuterol Sulfate (Albuterol Nebulized 2.5 Mg/3 Ml) 2.5 mg INHALATION RT-QID [facility] Last Admin: 09/30/22 19:56 Dose: 2.5 mg Alprazolam (Alprazolam 0.25 Mg Tab) 0.25 mg PO Q6HR PRN PRN Reason: Mild Anxiety Alprazolam (Alprazolam 0.5 Mg Tab) 0.5 mg PO Q6HR PRN PRN Reason: Moderate Anxiety Aspirin (Aspirin 325 Mg Tab) 325 mg PO DAILY [facility] Atorvastatin Calcium (Atorvastatin 20 Mg Tab) 20 mg PO DAILY [facility] Last Admin: 09/30/22 11:51 Dose: Not Given Budesonide/Formoterol Fumarate (Symbicort 160-4.5 Mcg Inhaler) 2 puff INHALAT ION RT-BID [facility] Last Admin: 09/30/22 19:56 Dose: 2 puff Cholecalciferol (Cholecalciferol 25 Mcg (1000 Iu) Tablet) 25 mcg PO DAILY [facility] Last Admin: 09/30/22 11:56 Dose: 25 mcg Clopidogrel Bisulfate (Clopidogrel 75 Mg Tab) 75 mg PO DAILY [facility] Donepezil HCl (Donepezil 10 Mg Tab) 10 mg PO BID [facility] Last Admin: 09/30/22 21:50 Dose: 10 mg Heparin Sodium (Porcine) (Heparin Sodium,Porcine/Pf 5,000 Unit/0.5 Ml Syringe) 5,000 unit SQ Q12HR [facility] Last Admin: 09/30/22 21:50 Dose: 5,000 unit Heparin Sodium (Porcine) 10, (000 unit/ Sodium Chloride) 1,001 mls @ 999 mls/hr IRRIGATION ONCE PRN PRN Reason: INTRA-OP Stop: 10/01/22 23:00 Heparin Sodium (Porcine) 2,500 (unit/ Sodium Chloride) 250.5 mls @ 250 mls/hr IRRIGATION ONCE PRN PRN Reason: INTRA-OP Stop: 10/01/22 23:00 Levetiracetam (Levetiracetam 500 Mg Tab) 500 mg PO Q12HR [facility] Last Admin: 09/30/22 21:50 Dose: 500 mg Meclizine HCl (Meclizine 12.5 Mg Tab) 12.5 mg PO TID PRN PRN Reason: Vertigo Memantine (Memantine 10 Mg Tab) 10 mg PO BID [facility] Last Admin: 09/30/22 21:50 Dose: 10 mg Miscellaneous Information (Pneumonia Protocol Utilized 1 Each Misc) 1 each PO ONCE PRN PRN Reason: Per Protocol Multivitamins (Multivitamins, Thera 1 Each Tab) 1 each PO DAILY [facility] Last Admin: 09/30/22 11:55 Dose: 1 each Nitroglycerin (Nitroglycerin Sl Tabs 0.4 Mg Tab) 0.4 mg SUBLINGUAL Q5M PRN PRN Reason: Chest Pain PHYSICAL EXAMINATION: GENERAL: The patient is alert and oriented x2, thin built, elderly appearing HEENT: Pupils are round and equally reacting to light. EOMI. no scleral icterus. No conjunctival pallor. Normocephalic, atraumatic. No pharyngeal erythema. No thyromegaly. CARDIOVASCULAR: S1 and S2 muffled PULMONARY: diminished breath sounds bilaterally with some scattered rhonchi noted. ABDOMEN: soft. Nontender on exam. non-distended, normoactive bowel sounds. No palpable organomegaly. MUSCULOSKELETAL: No joint swelling or deformity. EXTREMITIES: No cyanosis, clubbing, or pedal edema. NEUROLOGICAL: Gross neurological examination did not reveal any focal deficits. Diffuse weakness SKIN: No rashes. Assessment: Right middle lobe pneumonia, possibly, ruled out aspiration Right arm weakness, possible recent TIA, ruled out acute CVA, MRI was negative PFO is noted on JEFFERY status post closure on 09/30/2022 COPD, Acute exacerbation History of CVA/TIA History of memory impairment with dementia History of uterine cancer History of continued ongoing nicotine dependence Elevated d-dimer with no evidence of PE on CT Leukocytosis improved GI prophylaxis DVT prophylaxis Full code Plan: Recommend to continue with current medications and management with neurology following as well as pulmonary. Cardiology following for abnormal echo and neurology recommend JEFFERY for further evaluation. MRI of the brain was negative for acute stroke. Patient underwent JEFFERY and found to have PFO and is status post closure with Dr. Emanuel today Patient is continued on ceftriaxone and will continue patient also has history of COPD with acute exacerbation and will be continued on breathing treatments Recommend PT/OT therapy We'll monitor overnight with possible discharge in 24 hours Due to multiple complex medical issues, prognosis is guarded The impression and plan of care has been dictated by Cassie Verduzco, nurse practitioner as directed. Dr. Enrrique MD I have performed a history and examination and MDM of this patient, discussed the same with the dictator, and agree with the dictator's assessment and plan as written ,documented as a scribe. Based on total visit time, I have performed more than 50% of the visit. Any additional findings or plans will be noted. Objective - Vital Signs Vital signs: Vital Signs Temp 98.2 F 09/30/22 20:00 Pulse 68 09/30/22 20:00 Resp 18 09/30/22 20:00 BP 112/70 09/30/22 20:00 Pulse Ox 98 09/30/22 20:00 FiO2 21 09/28/22 20:51 Intake & Output 09/30/22 09/30/22 10/01/22 06:59 18:59 06:59 Intake Total 325 Balance 325 Intake: IV 325 Oral 0 Other: Voiding Method External Catheter # Voids 1 - Labs CBC & Chem 7: 09/29/22 05:43 09/29/22 05:43 Labs: Microbiology - Last 24 Hours (Table) 09/26/22 10:58 Legionella Culture - Preliminary Sputum 09/26/22 11:05 Blood Culture - Preliminary Blood No Growth after 96 hours 09/26/22 11:20 Blood Culture - Preliminary Blood No Growth after 96 hours
[2022-10-01] MEDS ORDERED: HEPARIN SODIUM,PORCINE 2,500 UNIT in SODIUM CHLORIDE 0.9% 250 ML IRRIGATION PRN (07:00)
[2022-10-01] MEDS ORDERED: HEPARIN SODIUM,PORCINE 10,000 UNIT in SODIUM CHLORIDE 0.9% 1,000 ML IRRIGATION PRN (07:00)
[2022-10-01] MEDS: ALBUTEROL NEBULIZED 2.5 MG/3 ML INHALATION SCH ×3 (07:39→15:19)
[2022-10-01] MEDS: SYMBICORT 160-4.5 MCG INHALER INHALATION SCH (07:40)
--- NOTE | 2022-10-01 07:40 | P.PN ---
Subjective Progress Note Date: 10/01/22 Principal diagnosis: PFO The patient is a pleasant 52-year-old female patient was admitted to the hospital was TIA. She underwent a transesophageal echocardiogram which revealed patent foram[place] with [id number] shunt. She underwent successful closure of patent foramen ovale yesterday. October [id number] The patient was seen and evaluated this morning. She remains stable. She is asymptomatic. She is on dual antiplatelet therapy. At this point I would continue the current medical regimen and follow-up on the echocardiogram which supposed to be done in the morning. On examination she has stable vital signs with regular rhythm and clear breathing sounds bilaterally and no carotid bruit or lower extremities edema Plan History of TIA Patent sands ovale and status post percutaneous closure Plan Continue the current medical regimen Follow-up on the echocardiogram Follow-up with the patient Objective - Vital Signs Vital signs: Vital Signs Temp 98.5 F 10/01/22 04:00 Pulse 80 10/01/22 04:00 Resp 18 10/01/22 04:00 BP 108/70 10/01/22 04:00 Pulse Ox 97 10/01/22 04:00 FiO2 21 09/28/22 20:51 Intake & Output 09/30/22 10/01/22 10/01/22 18:59 06:59 18:59 Intake Total 325 120 Balance 325 120 Intake: IV 325 Oral 0 120 Other: Voiding Method External Catheter # Voids 1 1 - Labs CBC & Chem 7: 09/29/22 05:43 09/29/22 05:43 Labs: Microbiology - Last 24 Hours (Table) 09/26/22 10:58 Legionella Culture - Preliminary Sputum 09/26/22 11:05 Blood Culture - Preliminary Blood No Growth after 96 hours 09/26/22 11:20 Blood Culture - Preliminary Blood No Growth after 96 hours
--- NOTE | 2022-10-01 08:43 | XR ---
EXAMINATION TYPE: XR chest 2V DATE OF EXAM: 10/01/2022 COMPARISON: 09/30/2022 INDICATION: ASD PFO placement TECHNIQUE: Frontal and lateral views of the chest are obtained. FINDINGS: The heart size is normal. There is a metallic foreign body within the heart from prior intervention. The pulmonary vasculature is normal. The lungs are clear. IMPRESSION: 1. No acute pulmonary process.
[2022-10-01] MEDS ORDERED: CLOPIDOGREL 75 MG TAB PO SCH (09:00)
[2022-10-01] MEDS ORDERED: ASPIRIN 325 MG TAB PO SCH (09:00)
[2022-10-01] MEDS: CHOLECALCIFEROL 25 MCG (1000 IU) TABLET PO SCH (09:32)
[2022-10-01] MEDS: MULTIVITAMINS, THERA 1 EACH TAB PO SCH (09:32)
[2022-10-01] MEDS: DONEPEZIL 10 MG TAB PO SCH (09:32)
[2022-10-01] MEDS: levETIRAcetam 500 MG TAB PO SCH (09:32)
[2022-10-01] MEDS: HEPARIN SODIUM,PORCINE/PF 5,000 UNIT/0.5 ML SYRINGE SQ SCH (09:32)
[2022-10-01] MEDS: MEMANTINE 10 MG TAB PO SCH (09:32)
[2022-10-01] MEDS: ATORVASTATIN 20 MG TAB PO SCH (09:32)
[2022-10-01] MEDS: ACETAMINOPHEN TAB 325 MG TAB PO PRN (09:41)
[2022-10-01 12:00] VITALS: TEMP 98.1
--- NOTE | 2022-10-01 12:12 | P.PN ---
Subjective Progress Note Date: 10/01/22 Principal diagnosis: COPD exacerbation/pneumonia. 52-year-old female seen in the emergency department on September 26, complaining of chest pain. She apparently had not been feeling well for just a few hours or maybe a day or so before admission. She had pressure in the chest primarily on the right side. She also admitted to being short of breath, and was cold, and sweaty. She apparently did not provide most of the history, and it was mostly provided by family members. We see her today in room 385. She sitting in bed, resting comfortably, with her daughter at the bedside. The patient's on room air. The patient's not receiving any IV fluids. The patient was placed on Rocephin and azithromycin for possible pneumonia. The patient did smoke for 40 years. She was smoking time of her admission. She apparently has no significant past medical history other than dementia. White count 12.8, with a normal hemoglobin, hematocrit, and platelet count. Sodium 141, potassium 4, chlorides 110, CO2 27, within normal BUN and creatinine. TSH was normal. Brain MRI was essentially unremarkable, other than for some nonspecific white matter changes. Chest x-ray shows a possible infiltrate adjacent to the right heart border. CT angiogram was negative for pulmonary embolism, but did show a right middle lobe infiltrate. There are also changes consistent with COPD. The patient is seen today 09/28/2022 in follow-up on the selective care unit. She is currently sitting up in bed. Awake and alert in no acute distress. Maintaining O2 saturations in the 90s on room air. Normal saline at 60 ML's per hour. She is feeling better today compared to yesterday. Blood cultures reveal no growth to date. Sputum culture pending. White count 9.1. Hemoglobin 11.8. Platelets 261. Sodium 141. Potassium 3.8. Bicarb 25. BUN 13. Creatinine 0.46. She remains on Symbicort, albuterol, antibiotics in the form of ceftriaxone. Echocardiogram revealed mildly impaired left ventricular systolic function with ejection fraction 40-45%. No valvular heart disease. Could not exclude PFO or ASD. Progress note dated 09/29/2022. The patient is seen today in room 385. She's currently on room air. She's not receiving any IV fluids. All of her culture data thus far is negative. She is scheduled to have a transesophageal echocardiogram. She has no complaints today. White count 6.1, hemoglobin 11.7, hematocrit 35.3, and platelet count 298,000. His sodium 140, potassium 4.1, chlorides 110, CO2 24, BUN 15, and creatinine is 0.44. Pro-calcitonin level was 0.32. All of her culture data is as far negative. Progress note dated 10/01/2022. The patient is seen today in room 385. The patient appears be doing reasonably well from the pulmonary standpoint. The patient's currently on room air. She has no IV fluids running. She does complain about some chest discomfort or heaviness, in the center of her chest. I told her that she should mention this to the lift team technician, and her hospital doctor. She denies any breathing issues, cough, wheezing, chest tightness, or phlegm production. She did have a transesophageal echocardiogram done, and was found to have a patent foramen ovale. No new labs today. Today's chest x-ray does not show an acute pulmonary process. Objective - Vital Signs Vital signs: Vital Signs Temp 98.1 F 10/01/22 08:00 Pulse 64 10/01/22 11:46 Resp 18 10/01/22 08:00 BP 122/78 10/01/22 08:00 Pulse Ox 98 10/01/22 08:00 FiO2 21 09/28/22 20:51 Intake & Output 09/30/22 10/01/22 10/01/22 18:59 06:59 18:59 Intake Total 325 120 Balance 325 120 Intake: IV 325 Oral 0 120 Other: Voiding Method External Catheter External Catheter # Voids 1 1 2 - Exam No acute distress, oriented 3. No respiratory distress. Only on room air. HEENT examination is grossly unremarkable. Mucous membranes are moist. No oral lesions. Neck supple. Full range of motion. No adenopathy thyromegaly or neck vein distention. Cardiovascular examination reveals regular rhythm rate. S1-S2 normal. No S3 or S4. No discernible murmur noted. Heart rate 64 bpm. Lungs reveal mostly clear breath sounds. Scattered rhonchi. No wheezes. No crackles. Breath sounds equal bilaterally. Room air saturation is 98%. Abdomen soft bowel sounds are heard. No masses or tenderness. Extremities are intact. No cyanosis clubbing or edema. Skin is without rash or lesion. Neurologic examination is brief but nonfocal. - Labs CBC & Chem 7: 09/29/22 05:43 09/29/22 05:43 Labs: Microbiology - Last 24 Hours (Table) 09/26/22 10:58 Legionella Culture - Preliminary Sputum 09/26/22 11:05 Blood Culture - Preliminary Blood No Growth after 96 hours 09/26/22 11:20 Blood Culture - Preliminary Blood No Growth after 96 hours Assessment and Plan Assessment: Acute shortness of breath, secondary to COPD exacerbation, complicated by right- sided pneumonia. Altered mental status with right arm stiffness, with a normal MRI of the brain. PFO, with [id number] shunt, status post percutaneous closure, postop day #1. Ongoing tobacco use with nicotine addiction. History of dementia. History of CVA. History of angina pectoris. Plan: Plan dated 09/27/2022. The patient is currently on azithromycin and Rocephin. The patient is currently being followed by neurology as well. Continue to follow and make recommendations along the way. Prognosis is guarded. We counseled her about the importance of smoking cessation. Plan dated 09/29/2022. Clinically, the patient's doing well. She remains on room air. The patient is not receiving any IV fluids. She apparently is scheduled to have a transesophageal echocardiogram. She is counseled about the importance of smoki ng cessation. We will continue to follow. Prognosis is guarded. She remains on antibiotics. Plan dated 10/01/2022. The patient is stable from the pulmonary standpoint. She's on room air. Her est x-ray is normal. The pulmonary standpoint, she is not having any issues including shortness of breath, chest tightness, cough, wheezing, or phlegm production. Moving forward, we will see the patient only as needed. She was counseled about the importance of smoking cessation. Prognosis is guarded. Time with Patient: Less than 30
--- NOTE | 2022-10-01 12:41 | CA ---
Transthoracic Echo Report Name: Yari Ortiz Age: 52 Gender: F : 1970 Exam Date: 10/01/2022 09:10 Exam Location: [facility] Ht (in): 61 Wt (lb): 110 Ordering Physician: Eliud Emanuel MD ([id number]) Attending/Referring Phys: Parakeet Raiser Joaquina Whaley RDCS Procedure CPT: Indications: Post ASD/PFO Insertion Cardiac Hx: Technical Quality: Good Contrast 1: Total Dose (mL): Contrast 2: Total Dose (mL): MEASUREMENTS (Male / Female) Normal Values 2D ECHO LV Diastolic Diameter PLAX 4.2 cm 4.2 - 5.9 / 3.9 - 5.3 cm LV Systolic Diameter PLAX 2.6 cm IVS Diastolic Thickness 0.9 cm 0.6 - 1.0 / 0.6 - 0.9 cm LVPW Diastolic Thickness 0.9 cm 0.6 - 1.0 / 0.6 - 0.9 cm LV Relative Wall Thickness 0.4 RV Internal Dim ED PLAX 2.8 cm LA Systolic Diameter LX 3.0 cm 3.0 - 4.0 / 2.7 - 3.8 cm LV Diastolic Volume MOD BP 51.5 cm??? 67 - 155 / 56 - 104 cm??? LV Systolic Volume MOD BP 23.4 cm??? 22 - 58 / 19 - 49 cm??? LV Ejection Fraction MOD BP 54.5 % >= 55 % LV Diastolic Volume MOD 4C 46.5 cm??? LV Systolic Volume MOD 4C 26.7 cm??? LV Ejection Fraction MOD 4C 42.7 % LV Diastolic Length 4C 6.1 cm LV Systolic Length 4C 5.2 cm LV Diastolic Volume MOD 2C 55.3 cm??? LV Systolic Volume MOD 2C 21.4 cm??? LV Ejection Fraction MOD 2C 61.4 % LV Diastolic Length 2C 6.4 cm LV Systolic Length 2C 5.2 cm LA Volume 29.8 cm??? 18 - 58 / 22 - 52 cm??? M-MODE Aortic Root Diameter MM 2.9 cm MV E Point Septal Separation 0.5 cm AV Cusp Separation MM 2.3 cm DOPPLER AV Peak Velocity 125.0 cm/s AV Peak Gradient 6.2 mmHg MV Area PHT 3.9 cm??? Mitral E Point Velocity 66.4 cm/s Mitral A Point Velocity 78.8 cm/s Mitral E to A Ratio 0.8 MV Deceleration Time 194.1 ms MV E' Velocity 10.4 cm/s Mitral E to MV E' Ratio 6.4 FINDINGS Left Ventricle Left ventricular ejection fraction is estimated at 40-45 %. Left ventricular cavity size normal. Left ventricular wall thickness normal. Mildly reduced global left ventricular systolic function. Right Ventricle Normal right ventricular size and function. No TR jet Right Atrium Normal right atrial size. Closure device seen on atrial level without evidence of shunt Left Atrium Normal left atrial size. Mitral Valve Mitral valve thickened. No mitral stenosis. No evidence for mitral valve prolapse. Trace mitral regurgitation. Aortic Valve Trileaflet aortic valve. No aortic valve stenosis or regurgitation. Tricuspid Valve Structurally normal tricuspid valve. No tricuspid stenosis, regurgitation or prolapse. No tricuspid regurgitation. Pulmonic Valve Structurally normal pulmonic valve. No pulmonic regurgitation. Pericardium No pericardial effusion. Normal pericardium. Aorta Normal size aortic root and proximal ascending aorta. CONCLUSIONS Stable interatrial septal occluder device with no residual shunt No evidence of pericardial effusion Previewed by: Dr. Eliud Emanuel MD (Electronically Signed) Final Date: 01 October 2022 12:40
--- NOTE | 2022-10-01 13:29 | P.PN ---
Subjective Progress Note Date: 09/30/22 Patient was seen for a follow-up. Patient is sitting comfortably in the bed. Patient had a JEFFERY performed today, which apparently showed PFO, which was closed. Patient states she is feeling better. Denies any neurological symptoms. Objective - Vital Signs Vital signs: Vital Signs Temp 97.8 F 09/30/22 15:12 Pulse 58 L 09/30/22 16:41 Resp 16 09/30/22 15:12 BP 110/69 09/30/22 15:12 Pulse Ox 96 09/30/22 15:12 FiO2 21 09/28/22 20:51 Intake & Output 09/29/22 09/30/22 09/30/22 18:59 06:59 18:59 Intake Total 118 325 Balance 118 325 Intake: IV 325 Oral 118 0 Other: Voiding Method External Catheter # Voids 3 1 - Exam Patient's examination is essentially unchanged. Detailed testing deferred. Patient is laying comfortably in the bed. She smiles, reacts appropriately. - Labs CBC & Chem 7: 09/29/22 05:43 09/29/22 05:43 Labs: Microbiology - Last 24 Hours (Table) 09/26/22 10:58 Legionella Culture - Preliminary Sputum 09/26/22 11:05 Blood Culture - Preliminary Blood No Growth after 96 hours 09/26/22 11:20 Blood Culture - Preliminary Blood No Growth after 96 hours Assessment and Plan Assessment: * Episode of altered mental status, right arm stiffness, rule out TIA/CVA, rule out focal seizure. Altered mental status could be related to acute pneumonia, but focal stiffness of the right arm is of unclear cause. * Dementia, probably Alzheimer's, with superimposed vascular risk factors and possible stroke/TIA in the past. * Possible COPD exacerbation versus pneumonia. Patient on ceftriaxone and azithromycin. * History of stroke/TIA in the past. * History of hemiplegic migraines * Tobacco use Plan: * JEFFERY, which revealed aneurysmal interatrial septum with evidence of PFO and [id number] shunt. Intact left atrial appendage. Normal biventricular dimensions and systolic function. Aortic sclerosis with no stenosis or regurgitation. Normal mitral valve leaflets with mild MR. * Patient underwent successful closure of PFO by Dr. Finnegan. Patient is doing well. * MRI of the brain without contrast, revealed no evidence of intracranial mass or acute/subacute infarct. Nonspecific white matter changes likely secondary to small vessel ischemic disease. I personally reviewed MRI, agree with the findings. There is generalized cerebral atrophy, more than patient's chronological age. Also on FLAIR sequences, there is no evidence of previous stroke as patient's family has mentioned. * 2-D echo revealed mildly impaired left ventricular function with EF between 40-45%. Normal intracardiac valves. Cannot exclude PFO or ASD. Recommend JEFFERY to rule out embolic source. * Carotid Doppler, revealed no significant stenosis. Antegrade flow in both vertebral arteries. * Fasting a.m. lipid panel with cholesterol 123, LDL 42, HDL 64 and triglycerides 81. Continue Lipitor 20 mg daily. * Hemoglobin A1c 6.0. * EEG was abnormal EEG due to background slowing of mild to moderate degree. This is suggestive of generalized cerebral dysfunction as can be seen with encephalopathy related to metabolic, vascular or degenerative etiology. Clinical correlation is recommended. Occasional frontal intermittent rhythmic delta activity was seen, which is nonspecific finding, may suggest underlying cortical dysfunction or may be related to encephalopathy, or may have convulsive tendency. No clear-cut epileptiform activity was seen * Patient had numerous history of TIA/CVA in the past. However MRI of the brain did not show any evidence of recent or remote stroke. Her previous MRI from March 2022 from [facility] also was negative for an acute stroke. With abnormal EEG, I will start patient on antiepileptic medication. Patient will be started on Keppra 500 mg twice a day. Possible side effect of drowsiness, behavioral problems related to Keppra were discussed. Patient tolerating Keppra very well. No side effects reported. Suggest patient follow-up with a neurologist. If no further seizures, and if repeat EEG is normal, may potentially take her off Keppra. Discussed with primary team. * B12 597, folate 38.0, TSH 0.619, RPR nonreactive. MMA <0.10, B6 12, both normal and B1 96. * Optimize control of blood pressure. * Close neuro checks * Telemetry monitoring rule out any arrhythmia * Patient started on dual antiplatelet medication with aspirin 325 mg and Plavix and 5 mg daily by cardiology. We will start Pepcid 20 mg twice a day for gastric ulcer prophylaxis. * Recommend complete tobacco cessation. * DVT prophylaxis: On Heparin 5000 units subcu every 12 hours * Neurologically clear for discharge, when cleared by cardiology. Recommended patient follow up with a neurologist.
[2022-10-01] MEDS ORDERED: FAMOTIDINE 20 MG TAB PO SCH (13:45)
[2022-10-01 14:38] LABS: Amorphous Sediment,Urine Moderate /hpf; Appearance,Urine Turbid (Clear); Bilirubin,Urine Negative (Negative); Blood,Urine Negative (Negative); Color,Urine Yellow; Glucose,Urine (UA) Negative (Negative); Ketones,Urine Negative (Negative); Leukocyte Esterase,Urine Negative (Negative); Nitrite,Urine Negative (Negative); Protein,Urine Trace (Negative); RBC,Urine 1 /hpf (0-5); Specific Gravity,Urine 1.023 (1.001-1.035); Urobilinogen,Urine <2.0 mg/dL (<2.0); WBC,Urine <1 /hpf (0-5)
[2022-10-01 15:32] VITALS: BP 95/62; PULSE 98
--- NOTE | 2022-10-05 06:30 | P.DS ---
Providers Date of admission: 09/26/22 11:01 Expected date of discharge: 10/01/22 Attending physician: Justin Crews MD Consults: 09/26/22 10:58 Consult Physician Routine Consulting Provider: Lyndsay Lomeli Consult Reason/Comments: r arm weak, resolved, tia Do you want consulting provider notified?: Yes 09/26/22 16:31 Consult Physician Routine Consulting Provider: Cristo Mccabe Consult Reason/Comments: pneumonia Do you want consulting provider notified?: Yes 09/28/22 12:29 Consult Physician Routine Consulting Provider: Jake Gilbert Consult Reason/Comments: recurrent TIA; JEFFERY PFO Do you want consulting provider notified?: Yes [facility] Course: Final diagnosis Right middle lobe pneumonia, and on admission, possibly, ruled out aspiration Right arm weakness, possible recent TIA, ruled out acute CVA, MRI was negative PFO is noted on JEFFERY status post closure on 09/30/2022 COPD, Acute exacerbation History of CVA/TIA History of memory impairment with dementia History of uterine cancer History of continued ongoing nicotine dependence Elevated d-dimer with no evidence of PE on CT Leukocytosis improved GI prophylaxis DVT prophylaxis Full code Discharge disposition Patient is being discharged in a stable condition with guarded prognosis to home. Patient will follow-up with Dr. Noriega in the outpatient setting upon dis charge. Patient is to follow-up with urology and cardiology outpatient as scheduled. Total time taken is greater than 35 minutes. Hospital course This is a 52-year-old female who was recently admitted with weakness with some altered mentation with concerns of possible TIA versus CVA and underwent extensive neurological workup. Patient also evaluated by cardiology for abnormal echo and was found to have a PFO and is status post closure Dr. Emanuel on 09/30/2022. Patient will need close outpatient follow-up with primary care provider as well as cardiology and neurology outpatient. Patient had been maintained on antibiotics for concerns of pneumonia with pulmonary following. UTI was ruled out. Please refer to other consultation notes for further HPI. Currently no reports of chest pain, shortness of breath, or palpitations. Patient is afebrile. No reports of nausea or vomiting and patient is tolerating diet. Patient will be discharged home today. Guarded prognosis. Physical exam: Gen: This is a 52-year-old female who is awake, alert and oriented 2-3, thin built HEENT: Head is atraumatic, normocephalic. Pupils equal, round. Sclerae is anicteric. NECK: Supple. No JVD. No lymphadenopathy. No thyromegaly. LUNGS: Clear to auscultation. No wheezes or rhonchi. No intercostal retractions. HEART: Regular rate and rhythm. No murmur. ABDOMEN: Soft. Bowel sounds are present. No masses. No tenderness. EXTREMITIES: No pedal edema. No calf tenderness. NEUROLOGICAL: Patient is awake, alert and oriented x3. Cranial nerves 2 through 12 are grossly intact. Please refer to medication reconciliation sheet for a list of medications. The impression and plan of care has been dictated by Cassie Verduzco, Nurse Practitioner as directed. Dr. Enrrique MD I have performed a history and examination and MDM of this patient, discussed the same with the dictator, and agree with the dictator's assessment and plan as written ,documented as a scribe. Based on total visit time, I have performed more than 50% of the visit. Patient Condition at Discharge: Fair Plan - Discharge Summary Discharge Rx Participant: Yes New Discharge Prescriptions: New levETIRAcetam [Keppra] 500 mg PO Q12HR #60 tab Clopidogrel [Plavix] 75 mg PO DAILY #30 tab Acetaminophen Tab [Tylenol] 650 mg PO Q6HR PRN tab PRN Reason: Fever And/ Or Pain Budesonide-Formot 160-4.5 Mcg [Symbicort 160-4.5 Mcg Inhaler] 2 puff INHALATION RT-BID 30 Days #1 each Continue Multivitamins, Thera [Multivitamin (formulary)] 1 tab PO DAILY Meclizine [Antivert] 12.5 mg PO TID PRN PRN Reason: Vertigo Atorvastatin [Lipitor] 20 mg PO DAILY Cholecalciferol [Vitamin D3 (25 Mcg = 1000 Iu)] 25 mcg PO DAILY Aspirin EC [Ecotrin Low Dose] 81 mg PO HS Memantine [Namenda] 10 mg PO BID Donepezil [Aricept] 10 mg PO BID Discharge Medication List Aspirin EC [Ecotrin Low Dose] 81 mg PO HS 09/26/22 [History] Atorvastatin [Lipitor] 20 mg PO DAILY 09/26/22 [History] Cholecalciferol [Vitamin D3 (25 Mcg = 1000 Iu)] 25 mcg PO DAILY 09/26/22 [History] Donepezil [Aricept] 10 mg PO BID 09/26/22 [History] Meclizine [Antivert] 12.5 mg PO TID PRN 09/26/22 [History] Memantine [Namenda] 10 mg PO BID 09/26/22 [History] Multivitamins, Thera [Multivitamin (formulary)] 1 tab PO DAILY 09/26/22 [History] Acetaminophen Tab [Tylenol] 650 mg PO Q6HR PRN tab 10/01/22 [Rx] Budesonide-Formot 160-4.5 Mcg [Symbicort 160-4.5 Mcg Inhaler] 2 puff INHALATION RT-BID 30 Days #1 each 10/01/22 [Rx] Clopidogrel [Plavix] 75 mg PO DAILY #30 tab 10/01/22 [Rx] levETIRAcetam [Keppra] 500 mg PO Q12HR #60 tab 10/01/22 [Rx] Follow up Appointment(s)/Referral(s): Eliud Emanuel MD [STAFF PHYSICIAN] - 1 Week (Cardiology) Rin Woody MD [Medical Doctor] - 1 Week (Neurology) Lencho Noriega MD [Primary Care Provider] - 1-2 days Patient Instructions/Handouts: Transient Ischemic Attack (DC), Patent Foramen [place] (DC) Discharge Disposition: HOME SELF-CARE
== END 2022-10-01 16:42 | disposition home or self-care (01) | DRG 273 ==
LOC: EC 08:01 → 3SCARD 11:01
PROVIDERS: ADMIT Internal Medicine; ATTEND Internal Medicine
PROC: B244ZZZ Ultrasonography of Right Heart (ICD-10-PCS; principal; 2022-09-30 09:00)
PROC: B24BZZ4 Ultrasonography of Heart with Aorta, Transesophageal (ICD-10-PCS; principal; 2022-09-30 09:00)
PROC: 02U53JZ Supplement Atrial Septum with Synthetic Substitute, Percutaneous Approach (ICD-10-PCS; principal; 2022-09-30 09:00)
DX: Q21.12 Patent foramen ovale (principal); J18.9 Pneumonia, unspecified organism; G43.409 Hemiplegic migraine, not intractable, without status migrainosus; E04.2 Nontoxic multinodular goiter; F01.50 Vascular dementia, unspecified severity, without behavioral disturbance, psychotic disturbance, mood disturbance, and anxiety; G30.9 Alzheimer's disease, unspecified; G83.21 Monoplegia of upper limb affecting right dominant side; I08.1 Rheumatic disorders of both mitral and tricuspid valves; R79.1 Abnormal coagulation profile; F17.210 Nicotine dependence, cigarettes, uncomplicated; Z71.6 Tobacco abuse counseling; J43.9 Emphysema, unspecified; R09.02 Hypoxemia; Z79.82 Long term (current) use of aspirin; Z79.899 Other long term (current) drug therapy; Z85.42 Personal history of malignant neoplasm of other parts of uterus; Z86.73 Personal history of transient ischemic attack (TIA), and cerebral infarction without residual deficits; Z90.710 Acquired absence of both cervix and uterus; Z28.310 Unvaccinated for COVID-19; Z28.21 Immunization not carried out because of patient refusal
CPT/HCPCS: 36415; 70450; 70551; 71046; 71275; 80048; 80053; 80061; 81001; 82607; 82746; 83036; 83735; 83880; 83921; 84145; 84207; 84425; 84443; 84484; 85025; 85379; 85610; 85730; 86780; 86850; 86900; 86901; 87040; 87070; 87205; 93005; 93306; 93312; 93320; 93325; 93580; 93880; 94640; 94760; 95816; 96360; 99285

== ENCOUNTER 2024-12-24 12:54 | Day surgery (SDC) | payer MEDICARE ==
--- NOTE | 2024-12-24 09:13 | P.HPIHPCON ---
History of Present Illness H&P Date: 12/24/24 Chief Complaint: Right ureteral stone This is a 54-year-old female with history of a 7 mm right-sided mid ureteral stone, she is status post stent insertion on December 10. Presents today for right- sided ureteroscopy with holmium laser and stent removal. She is aware of the risk which include but not limited to bleeding, infection, injury to the ureter Consent for Procedure: I have explained the operation/procedure to the patient, including the risks, benefits, side effects, alternative therapies (including not receiving the proposed treatment or service), the likelihood of the patient achieving his/her goals, and potential recuperation problems for the procedure/sedation/analgesia, as well as any blood products, if indicated. I also explained to the patient the risks, benefits and side effects of the alternatives, as well as the risks rela danilo to not receiving the proposed procedure, care, treatment, or services. Past Medical History Past Medical History: Cancer, Chest Pain / Angina, CVA/TIA, Dementia, Memory Impairment Additional Past Medical History / Comment(s): uterine CA with hysterectomy, Alzheimer's Dementia and Vascular Dementia History of Any Multi-Drug Resistant Organisms: None Reported Past Surgical History: Ear Surgery, Hysterectomy Additional Past Surgical History / Comment(s): BMT, hole in heart patched 2022, ureteral stent insertion Past Anesthesia/Blood Transfusion Reactions: No Reported Reaction Smoking Status: Current every day smoker - Past Family History Mother Family Medical History: Cancer Additional Family Medical History / Comment(s): small cell lung CA, brain tumor Father Family Medical History: Cancer Additional Family Medical History / Comment(s): large cell CA Medications and Allergies Home Medications Medication Instructions Recorded Confirmed Type Aspirin EC [Ecotrin Low Dose] 81 mg PO HS 09/26/22 12/23/24 History Atorvastatin [Lipitor] 20 mg PO DAILY 09/26/22 12/23/24 History Donepezil [Aricept] 10 mg PO BID 09/26/22 12/23/24 History Memantine [Namenda] 10 mg PO BID 09/26/22 12/23/24 History Multivitamins, Thera [Multivitamin 1 tab PO DAILY 09/26/22 12/23/24 History (formulary)] Allergies Allergy/AdvReac Type Severity Reaction Status Date / Time No Known Allergies Allergy Verified 12/23/24 12:43 Surgical - Exam - General no distress, no pain - Eyes normal ocular movement, no pale - Respiratory normal expansion, normal respiratory effort Assessment and Plan Assessment: OR for right-sided ureteroscopy, holmium laser lithotripsy, stone basketing and stent removal
[~2024-12-24 12:54] MED LIST: HYDROmorphone 0.5 MG/0.5 ML SYRINGE IVP PRN; LIDOCAINE 1% (10MG/ML) FOR IV START INTRADERMA PRN; droPERidol 2.5 MG/ML VIAL IVP ONE
--- NOTE | 2024-12-24 13:11 | XR ---
EXAMINATION TYPE: XR KUB DATE OF EXAM: 12/24/2024 1:06 PM COMPARISON: None. CLINICAL INDICATION: Female, 54 years old with history of Ureteral Stone N20.1, TECHNIQUE: XR KUB view(s) obtained. FINDINGS: There is a normal bowel gas pattern. Mild fecal retention is present within the proximal descending c olon Psoas margins are normal. No organomegaly is present. There is a 0.7 cm calcification proximal right ureteral pelvic junction region. A ureteral stent is a djacent. Couple of punctate calcifications may be at the distal right ureteral stent. Phleboliths are within the differential. IMPRESSION: 1. 0.7 cm calcification adjacent to the pigtail of the right ureteral stent may be near the ureterope lvic junction on the right. 2. Couple of punctate distal ureteral stones not excluded. Phleboliths are within the differential. [facility], , 12/24/2024 1:09 PM
[2024-12-24] MEDS: LACTATED RINGERS 1,000 ML IV SCH (13:36)
[2024-12-24] MEDS: IV FLUID CONTINUATION 1,000 ML IV ONE (13:36)
[2024-12-24] MEDS: DEXAMETHASONE SOD PHOSPHATE 4 MG/ML 1 ML VIAL IV ONE (13:38)
[2024-12-24] MEDS: ONDANSETRON 4 MG/2 ML VIAL IVP ONE (13:38)
[2024-12-24] MEDS ORDERED: PHENYLEPHRINE-0.9% NACL SYG 1,000 MCG/10 ML SYRINGE ONE (14:31)
[2024-12-24] MEDS ORDERED: LIDOCAINE 1% INJ 10MG/ML (20 ML MDV) ONE (14:31)
[2024-12-24] MEDS ORDERED: SUCCINYLCHOLINE CHLORIDE 200 MG/10 ML VIAL IV ONE (14:31)
[2024-12-24] MEDS ORDERED: fentaNYL (PF) 50 MCG/ML 2 ML AMP ONE (14:31)
[2024-12-24] MEDS ORDERED: PROPOFOL 10 MG/ML 20 ML VIAL IV ONE (14:31)
[2024-12-24] MEDS ORDERED: GLYCOPYRROLATE 0.2 MG/ML 2 ML VIAL ONE (14:31)
[2024-12-24] MEDS: ceFAZolin 2 GM in DEXTROSE 5% IN WATER 50 ML IVPB PRN (14:36)
[2024-12-24] MEDS: IOPAMIDOL-370 100ML BTL MISCELLANE ONE (15:18)
--- NOTE | 2024-12-24 15:36 | P.OP ---
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 Presents today for right- sided ureteroscopy with holmium laser and stent removal. She is aware of the risk which include but not limited to bleeding, infection, injury to the ureter Description of Procedure: Patient brought to the operating, general anesthesia was induced. She was prepped and draped in sterile fashion placed in dorsolithotomy position. Cystoscopy through the 21 Ukrainian sheath was inserted per urethra, cystoscopy was performed showed no abnormality within the bladder. The stent was seen protruding from the right ureteral orifice, at this point the stent was grasped and removed to the meatus. Next a sensor wire was advanced through the stent and the stent was removed with the wire in place. Under fluoroscopy an 1113 Ukrainian access sheath was passed over the wire and into the proximal ureter. Next a flexible ureteroscope was inserted through the access sheath. Ureteroscopy was performed which showed a significantly tortuous ureter with almost complete U-turn of the ureter. At this time decision was made to proceed with a retrograde pyelogram, retrograde pyelogram was performed which confirmed the finding on ureteroscopy there was a complete U-turn of the ureter but there was no evidence of hydronephrosis, there was an area of narrowing right where the ureter turns. At this time I advanced a Glidewire through the ureteroscope which straightened out the ureter, I advanced the ureteroscope into the kidney, complete renoscopy was performed showed no stones within the kidney or any abnormalities within the kidney. Pullback ureteroscopy was performed showed no narrowing at the UPJ, but there was upon pulling the ureteroscope evidence of a small ureteral stone at the area where the ureter was kinked, and the ureter did turn on itself at that point. At this point using this stone basket the stone was grasped and removed. Pullback ureteroscopy was performed as the stone was removed which showed no additional stones or injury to the ureter. The bladder was emptied at the end of the case. Patient tolerated procedure was taken to recovery in stable condition. Given the finding on the retrograde and ureteroscopy she will undergo Lasix renogram in 4 to 6 weeks to assess the drainage of the kidney.
[2024-12-24 15:43] VITALS: TEMP 96.9
--- NOTE | 2024-12-24 16:04 | FL ---
EXAMINATION TYPE: FL urography retrograde DATE OF EXAM: 12/24/2024 FLUOROSCOPY R RENAL CALCULUS, 2MIN 17SEC FL TIME, [id number] images are provided. [facility], , 12/24/2024 4:02 PM
[2024-12-24 17:01] VITALS: BP 123/73; PULSE 60; RESP 16
== END 2024-12-24 17:20 | disposition home or self-care (01) ==
LOC: OR 12:54
PROVIDERS: ATTEND Urology
DX: N20.1 Calculus of ureter (principal); I25.10 Atherosclerotic heart disease of native coronary artery without angina pectoris; J44.9 Chronic obstructive pulmonary disease, unspecified; F17.210 Nicotine dependence, cigarettes, uncomplicated; F02.80 Dementia in other diseases classified elsewhere, unspecified severity, without behavioral disturbance, psychotic disturbance, mood disturbance, and anxiety; G30.9 Alzheimer's disease, unspecified; Z85.42 Personal history of malignant neoplasm of other parts of uterus; Z86.73 Personal history of transient ischemic attack (TIA), and cerebral infarction without residual deficits; Z90.710 Acquired absence of both cervix and uterus; Z94.81 Bone marrow transplant status; Z80.1 Family history of malignant neoplasm of trachea, bronchus and lung; Z79.82 Long term (current) use of aspirin; Z79.899 Other long term (current) drug therapy
CPT/HCPCS: 82365; 74420; 74018; 52353; C1769 ×2; C1758; J0330; J1100; J0690; J2405; J2003; J3010; J2704; Q9967; J2371; J1596

== ENCOUNTER → 2025-01-20 | Outpatient (CLI) | payer MEDICARE | END | disposition home or self-care (01) | LOC: RADNMMAIN 12:47 | PROVIDERS: ATTEND Urology | DX: Z53.9 Procedure and treatment not carried out, unspecified reason (principal) ==